=== PATIENT | male | born 1975 | race Caucasian/White ===

== ENCOUNTER 2023-12-06 15:24 | Emergency (ER) | payer OTHER, SELFPAY ==
[2023-12-06 15:28] VITALS: BP 174/89; PULSE 98; RESP 20; TEMP 39.2; O2SAT 94; BMI 37.5
--- NOTE | 2023-12-06 15:36 | XR_ITS ---
The [address] [address] Patient Name: CHIDI YU MRN: [id number] date: 1975 Sex: M Assigned Patient Location: ER Current Patient Location: ER Accession/Order Number: [id number] Exam Date: 12/06/2023 15:45 Report Date: 12/06/2023 16:13 At the request of: CIRILO DENT Procedure: XR chest 2V EXAM: CHEST 2 VIEWS HISTORY: cough TECHNIQUE: PA and lateral views chest. COMPARISON: None. FINDINGS: The lungs are clear. There is no focal lung consolidation, pleural effusion or pneumothorax. Pulmonary vasculature is within normal limits. The cardiomediastinal silhouette is normal. There are small degenerative spurs of the thoracic spine. XR/XR chest 2V IMPRESSION: 1. No acute cardiopulmonary disease. Electronically authenticated by: CHRISTIANNE CALDWELL Date: 12/06/2023 16:13
[2023-12-06] MEDS: IPRATROPIUM/ALBUTEROL SULFATE 3 ML AMPUL.NEB IH (15:56)
[2023-12-06 15:57] VITALS: PULSE 100; O2SAT 91
[2023-12-06 16:06] LABS: Influenza Virus A Antigen Negative; Influenza Virus B Antigen Negative; Internal Control Within Normal Limits; SARS-CoV-2 Ag NEGATIVE (NEGATIVE)
[2023-12-06] MEDS: IBUPROFEN 400 MG TABLET 800 MG PO (16:10)
[2023-12-06 16:42] VITALS: PULSE 93; TEMP 37; O2SAT 92
[2023-12-06 16:46] VITALS: BP 135/87
[2023-12-06] MEDS: PREDNISONE 20 MG TABLET 60 MG PO (17:02)
--- NOTE | 2023-12-06 17:16 | ED_ITS ---
HPI - General Adult General Chief complaint: Upper Respiratory Infection Stated complaint: low oxygen levels Time Seen by Provider: 12/06/23 15:32 Source: patient Mode of arrival: walk-in Limitations: no limitations History of Present Illness HPI narrative: 48-year-old male to the emergency department with chief complaint of cough, fever, chills, shortness of breath. Patient reports sudden onset of symptoms last evening. Has been taking Tylenol and ibuprofen at home with relief of some of the symptoms. He reports cough and shortness of breath continued today. He went to urgent care where he was told his pulse ox was low and he needed evaluation in the emergency department. Patient smokes half pack per day. No history of chronic obstructive pulmonary disease or asthma. He reports that he gets bronchitis yearly. He denies any chest pain. He denies any leg swelling. No history of deep vein thrombosis or PE. Related Data Previous Rx's Medication Instructions Recorded albuterol sulfate 90 mcg/actuation 2 inh inhalation Q4H PRN shortness 12/06/23 aerosol inhaler of breath or wheezing #8.5 grams dextromethorphan-guaifenesin ER 60 1 tab PO BID PRN cough #14 tabs 12/06/23 mg-1,200 mg tab,extend release,12hr (Mucinex DM) prednisone 20 mg tablet 60 mg (3 x 20 mg) PO DAILY 5 days 12/06/23 #15 tabs Allergies Allergy/AdvReac Type Severity Reaction Status Date / Time No Known Drug Allergies Allergy Verified 12/06/23 15:32 Review of Systems ROS Status of ROS 10 or more systems reviewed and unremark able except as noted in history and below Exam Narrative Exam Narrative: VITALS: I have reviewed the triage vital signs. GENERAL: Well developed, well appearing adult in no acute distress. NEURO: Alert and oriented. Moves all extremities. Face is symmetric and expressive. EYES: PERRL. No scleral icterus or conjunctival injection. No discharge. HENT: Normocephalic, atraumatic. Hearing is grossly intact. Bilateral nasal congestion. Mucous membranes moist. NECK: No JVD. Patient moves neck without restriction. CARDIO: Rhythm regular. Normal rate. No murmur, rub, or gallop. Pulses equal bilaterally in the upper and lower extremity. No lower extremity edema. PULM: Cough. Trace wheezes. No conversational dyspnea. No increased work of breathing. GI/: Abdomen is soft and non-tender. Normoactive bowel sounds. EXTREMITIES: Symmetric muscle bulk. No joint swelling. No clubbing, cyanosis, or deformity. SKIN: Warm and dry. Normal turgor. No rash or lesions appreciated. PSYCH: Mood, affect, and interaction is appropriate to the setting. Constitutional Vital Signs, click to edit/add: Last Vital Signs Temp 98.6 F 12/06/23 16:42 Pulse 93 H 12/06/23 16:42 Resp 20 12/06/23 15:28 BP 135/87 12/06/23 16:46 Pulse Ox 92 L 12/06/23 16:42 O2 Del Method Room Air 12/06/23 15:28 Course Vital Signs Vital signs: Vital Signs Temperature 102.5 F H 12/06/23 15:28 Pulse Rate 98 H 12/06/23 15:28 Respiratory Rate 20 12/06/23 15:28 Blood Pressure 174/89 H 12/06/23 15:28 Pulse Oximetry 94 L 12/06/23 15:28 Oxygen Delivery Method Room Air 12/06/23 15:28 Temperature 98.6 F 12/06/23 16:42 Pulse Rate 93 H 12/06/23 16:42 Respiratory Rate 20 12/06/23 15:28 Blood Pressure 135/87 12/06/23 16:46 Pulse Oximetry 92 L 12/06/23 16:42 Oxygen Delivery Method Room Air 12/06/23 15:28 Medical Decision Making MDM Narrative Medical decision making narrative: 48-year-old male to the emergency department she had flulike symptoms. Febrile, otherwise stable vitals. Does have some trace wheezing and a history of tobacco abuse. Viral swabs are ordered. Chest x-rays were ordered. A DuoNeb treatment is ordered. Patient agrees with this plan. Chest x-ray was without acute findings. COVID and Flu swabs are negative. Angled toward pulse ox was performed. Patient had no desaturation. He feels much improved with the ibuprofen and the DuoNeb treatment. I discussed tobacco cessation with the patient. Prednisone was given. A course of prednisone, albuterol treatments and Mucinex are prescribed as an outpatient. Return precautions were discussed. All questions were answered. Patient was discharged home. Medical Records Medical records reviewed: Yes I reviewed the patient's medical records Lab Data Lab results reviewed: Yes I reviewed the patient's lab results Labs: Lab Results 12/06/23 Range/Units 15:30 Influenza Type A Ag Negative Influenza Type B Ag Negative SARS-CoV-2 Ag (CV2AG) Negative (NEGATIVE) Imaging Data Chest x-ray: Attestation: I have reviewed the pertinent imaging results. Radiologist's impression: ITS Impressions Chest X-Ray 12/06/23 15:36 IMPRESSION: 1. No acute cardiopulmonary disease. Electronically authenticated by: CHRISTIANNE CALDWELL Date: 12/06/2023 16:13 Discharge Plan Discharge Stand Alone Forms: Portal Instructions Chief Complaint: Upper Respiratory Infection Clinical Impression: Upper respiratory infection, Tobacco use disorder, Bronchitis Patient Disposition: Home, Self-Care Time of Disposition Decision: 16:54 Condition: Good Mode of Transportation: Private Vehicle Prescriptions / Home Meds: New albuterol sulfate 90 mcg/actuation HFA aerosol inhaler 2 inh inhalation Q4H PRN (Reason: shortness of breath or wheezing) Qty: 8.5 0RF dextromethorphan-guaifenesin [Mucinex DM] 60-1,200 mg tablet extended release 12 hr 1 tab PO BID PRN (Reason: cough) Qty: 14 0RF prednisone 20 mg tablet 60 mg PO DAILY 5 Days Qty: 15 0RF Print Language: Gabonese Instructions: How to Stop Smoking (ED), How to Use a Metered-Dose Inhaler (ED), Acute Bronchitis (ED) Additional Instructions: You should only feel better on the medications. Return if your condition is worsening. Referrals: Bridget CASTRO [Primary Care Provider] - As soon as possible Discharge Date/Time: 12/06/23 17:05
== END 2023-12-06 17:05 | disposition home or self-care (01) ==
PROVIDERS: Emergency Provider Student in an Organized Health Care Education/Training Program; PCP Family Medicine
DX: J40 Bronchitis, not specified as acute or chronic (principal); J06.9 Acute upper respiratory infection, unspecified; F17.210 Nicotine dependence, cigarettes, uncomplicated; R50.9 Fever, unspecified; Z20.822 Contact with and (suspected) exposure to COVID-19
CPT/HCPCS: 71046; 87804; 87811; 94640; 99284; 99406

== ENCOUNTER 2024-01-21 08:52 | Emergency (ER) | payer OTHER, SELFPAY ==
[2024-01-21 08:59] VITALS: BP 138/90; PULSE 86; TEMP 37.1; O2SAT 97; BMI 36.2
--- NOTE | 2024-01-21 09:16 | XR_ITS ---
The [address] [address] Patient Name: CHIDI YU MRN: [id number] date: 1975 Sex: M Assigned Patient Location: ER Current Patient Location: ER Accession/Order Number: [id number] Exam Date: 01/21/2024 09:45 Report Date: 01/21/2024 10:15 At the request of: CITLALLI SAMAYOA Procedure: XR foot LT min 3V PROCEDURE: XR foot LT min 3V HISTORY: pain ; left foot heel and arch pain since injury a few days ago COMPARISON: None. FINDINGS: BONES:No fracture, acute abnormality, or significant arthropathy. SOFT TISSUES:No visible soft tissue swelling. EFFUSION:None visible. OTHER: Negative. XR/XR foot LT min 3V IMPRESSION: 1. No acute abnormality or significant degenerative changes. Electronically authenticated by: LIZETT BUSTOS Date: 01/21/2024 10:15
--- NOTE | 2024-01-21 12:23 | ED_ITS ---
HPI HPI - General Adult General Chief complaint: Extremity Injury, Lower Stated complaint: LEFT FOOT PAIN Time Seen by Provider: 01/21/24 09:15 Source: patient Mode of arrival: Wheelchair Limitations: no limitations History of Present Illness HPI narrative: Patient is a 48-year-old male who is presenting to the ER today with chief complaint of a injury that happened on Tuesday. Patient was getting off scaffolding, only stepped down approximately 2 feet. Patient felt a popping sensation to his left heel, left Achilles. 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 There is a morning patient had a hard time putting weight on his left foot and heel. Patient has been using ice and anti-inflammatories. Patient came in this morning because he still cannot ambulate or put weight on his left heel. Patient is having pain in his left heel and left Achilles. No other acute injury. Patient not following, not hit his head. Patient is initially stating more pain to his left heel than left Achilles. No ankle pain. Patient states it was no more than 2 feet when he stepped off the scaffolding onto the hard surface. Impacted mechanism of injury is low for left calcaneus fracture. Patient's also having mild left calf pain as well since Tuesday. All systems are negative except as noted/marked. All systems reviewed and otherwise negative. Nurses note and vital signs reviewed and patient is not hypoxic. General: The patient appears well and in no apparent distress. Patient is resting comfortably on cart. Patient is not toxic, lethargic, or listless Skin: Warm, dry, no pallor noted. There is no rash noted. No petechiae, purpura. Head: Normocephalic, atraumatic Eye: Normal conjunctiva, no drainage, EOMI. PERRL Ears, Nose, Mouth, and Throat: oral mucosa is moist. Nares patent. Mouth without vesicles. Cardiovascular: Regular Rate and Rhythm, no murmur, gallop, rub Respiratory: Patient is in no distress, no accessory muscle use, lungs are clear to auscultation, no wheezing, rales or rhonchi Musculoskeletal: Patient has full range of motion of all of the extremities, no motor, sensory, or focal neurological deficits. Negative [place] test, patient appears to have intact left Achilles tendon, is not completely soft, there is some ropiness, patient may have partial left Achilles tear. Patient does have moderate tenderness to palpation to left calcaneus, no swelling, ecchymosis. No pain to medial or lateral malleolus.No significant swelling to left foot. No other acute complaints. Neurological: A&O x4, normal speech Psychiatric: Cooperative Related Data Previous Rx's ?Medication ?Instructions ?Recorded albuterol sulfate 90 mcg/actuation 2 inh inhalation Q4H PRN shortness 12/06/23 aerosol inhaler of breath or wheezing #8.5 grams hydrocodone 5 mg-acetaminophen 325 1 tab PO Q4H PRN pain #10 tabs 01/21/24 mg tablet ibuprofen 800 mg tablet 800 mg PO Q8H PRN pain #30 tabs 01/21/24 Allergies Allergy/AdvReac Type Severity Reaction Status Date / Time No Known Drug Allergies Allergy Verified 12/06/23 15:32 Opioid HPI Opioid Management Most Recent Opioid Data: No Data to Display Exam Constitutional Vital Signs, click to edit/add: Last Vital Signs Temp 98.8 F 01/21/24 08:59 Pulse 86 01/21/24 08:59 Resp 18 01/21/24 08:59 BP 138/90 01/21/24 08:59 Pulse Ox 97 01/21/24 08:59 O2 Del Method Room Air 01/21/24 08:59 Course Vital Signs Vital signs: Vital Signs Temperature 98.8 F 01/21/24 08:59 Pulse Rate 86 01/21/24 08:59 Respiratory Rate 18 01/21/24 08:59 Blood Pressure 138/90 01/21/24 08:59 Pulse Oximetry 97 01/21/24 08:59 Oxygen Delivery Method Room Air 01/21/24 08:59 Temperature 98.8 F 01/21/24 08:59 Pulse Rate 86 01/21/24 08:59 Respiratory Rate 18 01/21/24 08:59 Blood Pressure 138/90 01/21/24 08:59 Pulse Oximetry 97 01/21/24 08:59 Oxygen Delivery Method Room Air 01/21/24 08:59 Medical Decision Making MDM Narrative Medical decision making narrative: I spoke to Dr. Zuluaga, he recommended putting patient in a short posterior splint in slight plantarflexion. Crutches, nonweightbearing, and they can see patient in the office on Tuesday or Tuesday. Procedure note: patient was placed in a short posterior splint and crutchEs To the left foot/ankle/lower extremities. Splint was assisted with . the patient was neurovascularly intact before and after the splint was placed. the affected bones/injured area had proper alignment in a splint. Education on splint care at home was given at bedside. Patient and family have no questions at discharge. Discharge Plan Discharge Stand Alone Forms: Portal Instructions Chief Complaint: Extremity Injury, Lower Clinical Impression: Injury of left Achilles tendon, Contusion of left heel Patient Disposition: Home, Self-Care Time of Disposition Decision: 10:34 Condition: Fair Prescriptions / Home Meds: New hydrocodone-acetaminophen 5-325 mg tablet 1 tab PO Q4H PRN (Reason: pain) Qty: 10 0RF ibuprofen 800 mg tablet 800 mg PO Q8H PRN (Reason: pain) Qty: 30 0RF Rx Instructions: with food and drink No Action albuterol sulfate 90 mcg/actuation HFA aerosol inhaler 2 inh inhalation Q4H PRN (Reason: shortness of breath or wheezing) Qty: 8.5 0RF Print Language: Turkish Instructions: Achilles Tendon Rupture (ED), Foot Contusion (ED) Additional Instructions: Ice 20 minutes on, 20 minutes off. Do not bear weight. Wear splint at all times. [facility] will see you on Tuesday or Tuesday, call Tuesday morning to make an appointment. I have spoken to Dr. Zuluaga about you today. Use crutches, do not bear weight. Referrals: Bridget CASTRO [Primary Care Provider] - 1 week Antwan Zuluaga DPM [Physician] - 1 week Discharge Date/Time: 01/21/24 11:24
== END 2024-01-21 11:24 | disposition home or self-care (01) ==
PROVIDERS: Emergency Provider Emergency Medicine; PCP Family Medicine
DX: S86.002A Unspecified injury of left Achilles tendon, initial encounter (principal); S90.32XA Contusion of left foot, initial encounter; X50.9XXA Other and unspecified overexertion or strenuous movements or postures, initial encounter
CPT/HCPCS: 29515; 73630; 99283

== ENCOUNTER 2024-02-03 06:47 | Outpatient (OUT) | payer OTHER, SELFPAY ==
--- NOTE | 2024-02-03 06:50 | MR_ITS ---
The [address] [address] Patient Name: CHIDI YU MRN: [facility]:[id number] date: 1975 Sex: M Assigned Patient Location: MRI Current Patient Location: Accession/Order Number: [id number] Exam Date: 02/03/2024 06:57 Report Date: 02/04/2024 10:12 At the request of: STEFANO BAUTISTA Procedure: MR ankle LT wo con EXAM: MR ankle LT wo con HISTORY: Left Achilles Rupture COMPARISON: 01/21/2024 radiograph TECHNIQUE: MRI images obtained with multiple sequences. MRI of the left ankle without contrast. Sequences obtained by standard department protocol. FINDINGS: Achilles tendon is intact. Susceptibility artifact adjacent to the Achilles tendon No ankle joint effusion. Plantar fascia is intact. Borderline thickening of the central plantar fascial fibers, suggesting potential chronic plantar fasciitis. Extensor and flexor tendons are intact. Partial-thickness tearing/tendinosis of the peroneus brevis Peroneus longus is intact. Anterior and posterior syndesmotic ligaments are intact. Anterior talofibular, posterior talofibular and calcaneofibular ligaments are intact. No significant degeneration of the hindfoot or midfoot. MR/MR ankle LT wo con IMPRESSION: 1. Achilles tendon is intact. No Achilles tendon tear. 2. There is a focus of susceptibility artifact adjacent to the Achilles tendon fibers, may represent a metallic focus. 3. No acute ligamentous abnormality. 4. Partial-thickness tearing/tendinosis of the peroneus brevis 5. No significant joint degeneration. Electronically authenticated by: CASSIUS SALGADO Date: 02/04/2024 10:12
== END 2024-02-03 06:48 | disposition home or self-care (01) ==
LOC: MRI 06:47
PROVIDERS: PCP Family Medicine; Visit Provider Physician Assistant
DX: S83.012A Lateral subluxation of left patella, initial encounter (principal)
CPT/HCPCS: 73721

== ENCOUNTER 2024-02-10 06:50 | Outpatient (RCR) | payer OTHER, SELFPAY | END 2024-04-11 15:24 | disposition home or self-care (01) | LOC: PT 06:50 | PROVIDERS: PCP Family Medicine; Visit Provider Podiatrist Foot & Ankle Surgery | DX: S86.012D Strain of left Achilles tendon, subsequent encounter (principal); R26.2 Difficulty in walking, not elsewhere classified | CPT/HCPCS: 20561; 97110; 97112; 97116; 97140; 97162 ==

== ENCOUNTER 2024-05-21 07:59 | Outpatient (OUT) | payer OTHER, SELFPAY ==
--- NOTE | 2024-05-21 08:50 | PM.PRESUREVA ---
History of Present Illness History of Present Illness Chief complaint: left calc spur Narrative: Patient presents for preadmission testing. The patient states he had an ankle injury earlier this year, and continues to have ankle pain and instability and despite physical therapy, NSAIDs, and alternative footwear. He states he is not currently using any assistive devices or taking any medications to help with his discomfort. He denies numbness, tingling, weakness, or any other complaints. He states his left ankle and foot pain is worse after climbing ladders or walking for long periods of time. Review of Systems ROS Narrative REVIEW OF SYSTEMS: Negative except as stated in HPI, ten or more systems reviewed. Constitutional: No fever, chills, weakness ENT: No sore throat or epistaxis Cardiovascular: No edema, chest pain, palpitations, or activity intolerance Respiratory: No shortness of breath, cough, or wheezing Gastrointestinal: No abdominal pain, constipation, diarrhea, or vomiting Genitourinary: No dysuria or hematuria Neurological: No numbness, tingling, weakness, or headache Psychiatric: No mood changes PFSH PFS Medical History (Updated 05/21/24 @ 08:53 by Nicol Bhat NP) Biceps tendon tear ?S46.219A - Strain of muscle, fascia and tendon of other parts of biceps, unspecified arm, initial encounter (ICD-10) Ankle pain ?M25.579 - Pain in unspecified ankle and joints of unspecified foot (ICD-10) Prediabetes ?R73.03 - Prediabetes (ICD-10) Ankle instability ?M25.373 - Other instability, unspecified ankle (ICD-10) Calcaneal spur ?M77.30 - Calcaneal spur, unspecified foot (ICD-10) Plantar fascial fibromatosis ?M72.2 - Plantar fascial fibromatosis (ICD-10) Peroneal tendinitis ?M76.70 - Peroneal tendinitis, unspecified leg (ICD-10) Strain of Achilles tendon ?S86.019A - Strain of unspecified Achilles tendon, initial encounter (ICD-10) Surgical History (Updated 05/21/24 @ 08:26 by Nicol Bhat NP) History of total hip arthroplasty ?Z96.649 - Presence of unspecified artificial hip joint (ICD-10) History of surgery on arm ?Z98.890 - Other specified postprocedural states (ICD-10) Family History (Updated 05/21/24 @ 08:26 by Nicol hBat NP) Other Family history of diabetes mellitus Family history of heart disease Social History (Updated 05/21/24 @ 08:22 by Nicol Bhat NP) Within the past year, how often did you have a drink containing alcohol: never Score interpretation: A score less than 4 is consistent with normal alcohol consumption. Smoking status: Current some day smoker What tobacco products do you use: cigarettes Cigarettes per day: 10 Years smoked: 24 Smoking pack-years: 12.00 Non-prescribed substance use: denies use Previous occupational history: [employer] Highest level of school completed/degree received: high school graduate Meds Home Medications and Allergies Allergies Allergy/AdvReac Type Severity Reaction Status Date / Time No Known Drug Allergies Allergy Verified 05/21/24 08:20 Exam Narrative Exam Narrative: Constitutional: Awake, alert, comfortable, well-appearing, nontoxic, interactive, vital signs as charted Head: Normocephalic, atraumatic Neck: Supple, normal appearance, normal range of motion, no meningeal signs, no lymphadenopathy Respiratory: No respiratory distress, breath sounds clear Cardiovascular: Regular rate and rhythm, strong and regular heart tones Musculoskeletal: Left ankle tenderness with palpation over the lateral aspect, pain with palpation on the plantar aspect of the medial arch, range of motion of the ankle limited due to pain, good capillary refill, sensation intact Skin: No rashes or induration, no lesions, only visible skin inspected Neuro: No neurological deficits, normal sensation Psychiatric: Oriented ?3, normal affect Assessment and Plan Assessment and Plan (1) Strain of Achilles tendon: (2) Peroneal tendinitis: (3) Plantar fascial fibromatosis: (4) Calcaneal spur: (5) Ankle instability: (6) Ankle pain: Plan Left Achilles tendon repair, excision of calcaneal spur, endoscopic plantar fasciotomy, peroneal tendon repair, stress exam of ankle with possible lateral ankle stabilization scheduled with Dr. Zuluaga May 31, 2024.
== END 2024-05-21 08:00 | disposition home or self-care (01) ==
LOC: PST 07:59
PROVIDERS: PCP Family Medicine; Visit Provider Podiatrist Foot & Ankle Surgery
DX: Z01.818 Encounter for other preprocedural examination (principal); S86.012A Strain of left Achilles tendon, initial encounter; M77.32 Calcaneal spur, left foot
CPT/HCPCS: G0463

== ENCOUNTER 2024-06-07 09:00 | Day surgery (SDC) | payer OTHER, SELFPAY ==
[2024-05-21 08:47] VITALS: BP 127/85; PULSE 70; TEMP 36.4; O2SAT 96; BMI 38.2
== END 2024-06-07 12:50 | disposition home or self-care (01) ==
LOC: LAB 06-15 13:27
PROVIDERS: PCP Family Medicine; Visit Provider Podiatrist Foot & Ankle Surgery
DX: S86.012A Strain of left Achilles tendon, initial encounter (principal); Z53.8 Procedure and treatment not carried out for other reasons; M77.32 Calcaneal spur, left foot
CPT/HCPCS: 36415; 85025

== ENCOUNTER 2024-06-18 06:28 | Day surgery (SDC) | payer OTHER, SELFPAY ==
[2024-06-18] VITALS (12 sets, daily range): BP systolic 125–156; BP diastolic 62–124; PULSE 66–87; TEMP 36.2–36.4; O2SAT 92–98; BMI 38.4
[2024-06-18 06:42] LABS: Basophils Absolute Auto 0.1 10^3/uL (0.0-0.1); Basophils Percent Auto 0.6 % (0.2-2.0); Eosinophils Absolute Auto 0.2 10^3/uL (0.0-0.7); Eosinophils Percent Auto 2.8 % (0.9-7.0); Hematocrit 47.2 % (42.0-54.0); Hemoglobin 15.9 g/dL (14.0-18.0); Immature Granulocytes Abs Auto 0.02 10^3/uL (0.00-0.03); Immature Granulocytes Pct Auto 0.2 % (0.0-0.5); Lymphocytes Absolute Auto 3.3 10^3/uL (1.2-3.8); Lymphocytes Percent Auto 37.8 % (20.5-60.0); Mean Corpuscular HGB Conc 33.7 g/dL (29.9-35.2); Mean Corpuscular Hemoglobin 29.3 pg (25.9-34.0); Mean Corpuscular Volume 86.9 fL (80.0-94.0); Mean Platelet Volume 9.5 fL (9.5-13.5); Monocytes Absolute Auto 0.4 10^3/uL (0.3-0.8); Monocytes Percent Auto 4.6 % (1.7-12.0); Neutrophils Absolute Auto 4.7 10^3/uL (1.4-6.5); Platelet Count 204 10^3/uL (150-450); Red Blood Count 5.43 10^6/uL (4.70-6.10); White Blood Count 8.7 10^3/uL (4.0-11.0)
[2024-06-18] MEDS: LACTATED RINGER'S SOLUTION 1,000 ML 50 ML IV ×2 (07:11→08:41)
[2024-06-18 07:36] LABS: Glucometer 123 mg/dL (74-106)
[2024-06-18] MEDS: CEFAZOLIN SODIUM 3,000 MG in 0.9 % SODIUM CHLORIDE 100 ML 200 MG IV (07:38)
--- NOTE | 2024-06-18 08:07 | PC.NURSE ---
0718 time out performed 07 2 mg versed injected in patient's IV 07 patient positioned area scrubbed to perform adductor canal block, injection of block medication began and was completed at 07 07 repositioned patient on right side 07 washed area behind knee to perform popliteal block looking with ultra sound for injection sight 07 began injection for popliteal block 07 picture obtained and block was completed at this time
--- NOTE | 2024-06-18 09:39 | XR_ITS ---
The [address] [address] Patient Name: CHIDI YU MRN: [id number] date: 1975 Sex: M Assigned Patient Location: [facility] Current Patient Location: Accession/Order Number: [id number] Exam Date: 06/18/2024 10:50 Report Date: 06/20/2024 08:20 At the request of: JUS SALAZAR Procedure: XR foot LT min 3V PROCEDURE: XR foot LT min 3V HISTORY: calcaneal spur ; left Achilles repair COMPARISON: XR foot left 01/21/2024 FINDINGS: BONES:Resection of a portion of the posterior superior aspect of the calcaneus. SOFT TISSUES:Trace amount of subcutaneous air posterior superior to the calcaneus consistent with recent surgery. EFFUSION:None visible. OTHER: Negative. XR/XR foot LT min 3V IMPRESSION: 1. Evaluation is slightly limited by overlying cast material. 2. Postsurgical changes from Achilles tendon repair/attachment. Electronically authenticated by: LIZETT BUSTOS Date: 06/20/2024 08:20
--- NOTE | 2024-06-18 09:41 | P.ORON_ITS ---
Brief Operative Note Date of procedure: 06/18/24 Pre-op diagnosis general: Left Achilles tendinopathy with partial tear, calcan eal spur, plantar fasciitis, peroneal tendon tear and possible ankle instability Post-op diagnosis: other (Left Achilles tendinopathy with partial tear, calcaneal spur, plantar fasciitis and peroneal tendon tear) Procedure: Procedure performed: Left Achilles tendon repair with excision of calcaneal spur, peroneal tendon repair, endoscopic plantar fasciotomy, application of short leg splint and stress examination under fluoroscopy Indications for procedure: Patient is a 48-year-old male who sustained left Achilles injury on 01/11/2024 when he stepped on a scaffold and felt a pop. He had had ongoing pain over the Achilles, posterior and plantar heel he related to unstable ankle especially with uneven surfaces and indicated pain over the peroneal tendons as an area of significant pain in addition to the previously noted issues. He was initially treated with nonoperative treatments which included physical therapy for 6 weeks, NSAIDs, shoe and activity modification and unfortunately he did not see any relief. An MRI was obtained in January which did show intratendinous degeneration of the Achilles with a peroneus brevis tear as well as calcaneal spur and thickening of the plantar fascia. Due to his failure to respond to nonsurgical treatment he wished to undergo surgical intervention and I discussed potential risks and benefits of the procedure which include but not limited to wound/dehiscence, infection, rerupture, weakness, persistent pain, numbness and tingling and need for additional surgery. I related that his use of tobacco does place him at higher risk particularly for wound, dehiscence and infection. Intraoperative findings: Stress examination revealed stability of the lateral ankle ligaments and negative anterior drawer. Plantar fascia was thickened and scar consistent with chronic plantar fasciitis Achilles tendon was thickened and consistent with chronic tendinosis and scar from partial tear. Retrocalcaneal bursitis and inflamed tissue noted at the insertion of the Achilles tendon with calcaneal spur. Split tear and flattening of the peroneus brevis as well as low-lying brevis muscle belly. Procedure in detail: Patient was identified preoperative holding by myself which time correct side and site were marked and consent was obtained. Regional anesthesia was provided by the anesthesia team. Preoperative antibiotics were started and patient is brought back to the operating theater and was intubated. The left ankle was stressed and had a notably stable anterior drawer and varus/valgus tilt. The patient was then flipped onto the table in a well-padded prone position with a thigh tourniquet. The left lower extremity was prepped and draped in usual sterile fashion and formal timeout was performed. The left lower extremity was exsanguinated and the tourniquet was inflated. Stab incision over the medial aspect of the left in-step at the glabrous skin junction was used followed by blunt dissection and the medial band of the plantar fascia was identified. Trochar and cannula were then placed medial to lateral. A lateral stab incision was made to allow passage of the trochar and cannula. Camera was inserted into the lateral portal and a hook blade was placed into the medial portal. 50% of the plantar fascia was released and healthy muscle was noted. The site was flushed with saline and instrumentation was removed. Closure with nylon suture was then undertaken. A midline longitudinal incision over the Achilles tendon was performed and a combination of sharp and blunt dissection with all bleeders being coagulated allowed access to the Achilles tendon. The non-insertional and insertional areas of the Achilles tendon were completely exposed. There was significant thickening and nonviable tissue noted in Achilles tendon. Retrocalcaneal spur was noted and upon incision of the Achilles tendon retrocalcaneal bursitis with surrounding inflammatory tissue was noted and excised. The Achilles tendon was detached from its insertion and inspected closely. Nonviable tendon was excised then all chronic tears and scar tissue removed the tendon was repaired with absorbable suture. Attention was then drawn to the retrocalcaneal spur and an osteotome was used to remove all excess bone and inflammatory tissue. A rongeur and rasp were then used to contour the retrocalcaneal to an anatomic appearance. Outer cortical bone was invaded and healthy bleeding was noted which will allow good tendon to bone healing. The area was flushed with copious amounts of sterile saline and a wet lap was placed over the Achilles tendon. Four drill holes were placed into the posterior calcaneus from posterior to anterior and were placed approximately 2 cm apart in a square type fashion. Two 3.3 mm suture anchors (each with 4 sutures/needles) were placed into the proximal two holes on the posterior aspect of the calcaneus. The sutures were then passed through the distal aspect of the Achilles tendon. The needles were removed and 2 of the sutures from each anchor were placed through a 4.5 mm knotless anchor. The foot was held in plantarflexion and proper tension of the sutures was obtained and the anchor was secured to the calcaneus through the distal medial drill hole. Then the 4 remaining sutures, 2 from each anchor were placed into a second 4.5 mm knotless anchor which was secured to the calcaneus using the distal lateral drill hole. I tested the stability of all anchors which was adequate. The foot was in 15 degrees of equinus. The surgical site was flushed thoroughly and the incision was closed in layers. Then an incision was placed over the peroneal tendons from the distal fibula extending 2 cm past the lateral malleolus tip. A combination of sharp and blunt dissection with all bleeders being coagulated gained access to the tendon sheath which was carefully reflected exposing the peroneus longus which was intact and of normal size. The longus was retracted out of the way to the half for inspection of the brevis which had a longitudinal split tear and flattening which extended the course of the fibular groove. Low-lying muscle belly was also significant and was excised. The tear of the brevis was excised and the tendon was debrided. The tendon was then repaired and retubularized using absorbable suture. The peroneal groove was of adequate depth and the tendons were relocated into the groove and the ankle was placed to range of motion noted smooth gliding of both the tendons. The surgical site was irrigated with copious saline the retinaculum and tendon sheath was then repaired using a pants over vest suture technique with observable suture. The incision was then closed in layers and the tourniquet was deflated with a prompt hyperemic response. Xeroform, 4 x 4's and Curlex were placed over the incisions followed by multiple layers of cast padding applied from the ball of the foot to the popliteal fossa. Next a layer of Brain wrap's were then applied from the forefoot to the popliteal fossa followed by additional layers of cast padding. A posterior plaster splint was then applied with the ankle in 15 degrees of plantarflexion which was held in place by additional layer of Brain wrap's. Patient was then transferred to the [facility] and extubated. Capillary refill to the left toes was brisk. Patient was then transferred to the recovery room with vital signs stable. Postoperative plan: Discharge home under 's care Strict nonweightbearing on the left lower extremity for approximately 3 weeks or until the incisions have healed. Written prescription for Percocet 5/325 #42 1 by mouth every 4 hours as needed for pain, additional prescriptions were sent directly to the pharmacy from my office. Ice and elevation Patient will follow-up in 1 week for cast application Implants: Medline 3.3 mm suture anchors (x2) & 4.5 mm knotless anchors (x2) Anesthesia: regional and General-ET Surgeon: Antwan Zuluaga Estimated blood loss (mL): 10 Tourniquet time (min): 82 Pathology: other (peroneal tendon) Condition: stable Disposition: PACU
[2024-06-18 10:47] LABS: Glucometer 156 mg/dL (74-106)
--- NOTE | 2024-06-18 11:27 | PC.NURSE ---
patient is emotional and very sleep denies any pain.
--- NOTE | 2024-06-18 12:07 | PC.NURSE ---
Patient denies pain at discharge but still emotional with tears. Patient was ready to go om
== END 2024-06-18 12:00 | disposition home or self-care (01) ==
PROVIDERS: Anesthesiology; PCP Family Medicine; Visit Provider Podiatrist Foot & Ankle Surgery
PROC: (CPT 01464; principal; 2024-06-18 07:30)
DX: S86.012A Strain of left Achilles tendon, initial encounter (principal); M77.32 Calcaneal spur, left foot; M72.2 Plantar fascial fibromatosis; S86.312A Strain of muscle(s) and tendon(s) of peroneal muscle group at lower leg level, left leg, initial encounter; X50.1XXA Overexertion from prolonged static or awkward postures, initial encounter; F17.210 Nicotine dependence, cigarettes, uncomplicated; M25.372 Other instability, left ankle; M76.72 Peroneal tendinitis, left leg; R73.03 Prediabetes
CPT/HCPCS: 01464; 01472; 01480; 27650; 27675; 28118; 29893; 36415; 64445; 64447; 73630; 76000; 82948; 85025; C1713; J0131; J0690; J1100; J1170; J1885; J2250; J2405; J2704; J2795; J3010

== ENCOUNTER 2024-06-25 21:44 | Emergency (ER) | payer OTHER, SELFPAY ==
[2024-06-25 21:49] VITALS: BP 178/110; PULSE 87; TEMP 36.7; O2SAT 96; BMI 40.0
--- NOTE | 2024-06-25 22:47 | ED.EXTPRO1 ---
HPI - Extremity Problem General Chief complaint: Extremity Problem, Nontraumatic Stated complaint: Post Operative Time Seen by Provider: 06/25/24 22:15 Source: patient Mode of arrival: Wheelchair History of Present Illness HPI Narrative: surgery left Achilles one week ago. Claribel took a shower and got the splint wet. Here to have the splint replaced. Has followup with Podiatry tomorrow Related Data Allergies Allergy/AdvReac Type Severity Reaction Status Date / Time No Known Drug Allergies Allergy Verified 06/18/24 06:52 Review of Systems ROS Status of ROS 10 or more systems reviewed and unremarkable except as noted in history and below [facility] Medical History (Updated 06/25/24 @ 22:55 by Franklin Braga MD) Biceps tendon tear ?S46.219A - Strain of muscle, fascia and tendon of other parts of biceps, unspecified arm, initial encounter (ICD-10) Ankle pain ?M25.579 - Pain in unspecified ankle and joints of unspecified foot (ICD-10) Prediabetes ?R73.03 - Prediabetes (ICD-10) Ankle instability ?M25.373 - Other instability, unspecified ankle (ICD-10) Calcaneal spur ?M77.30 - Calcaneal spur, unspecified foot (ICD-10) Plantar fascial fibromatosis ?M72.2 - Plantar fascial fibromatosis (ICD-10) Peroneal tendinitis ?M76.70 - Peroneal tendinitis, unspecified leg (ICD-10) Strain of Achilles tendon ?S86.019A - Strain of unspecified Achilles tendon, initial encounter (ICD-10) Surgical History (Updated 05/21/24 @ 08:26 by Nicol Bhat NP) History of total hip arthroplasty ?Z96.649 - Presence of unspecified artificial hip joint (ICD-10) History of surgery on arm ?Z98.890 - Other specified postprocedural states (ICD-10) Family History (Updated 05/21/24 @ 08:26 by Nicol Bhat NP) Other Family history of diabetes mellitus Family history of heart disease Social History (Updated 05/21/24 @ 08:22 by Nicol Bhat NP) Within the past year, how often did you have a drink containing alcohol: never Score interpretation: A score less than 4 is consistent with normal alcohol consumption. Smoking status: Current some day smoker What tobacco products do you use: cigarettes Cigarettes per day: 10 Years smoked: 24 Smoking pack-years: 12.00 Non-prescribed substance use: denies use Previous occupational history: [employer] Highest level of school completed/degree received: high school graduate Little interest or pleasure in doing things: not at all Feeling down, depressed, or hopeless: not at all Exam Constitutional Vital Signs, click to edit/add: Last Vital Signs Temp 98.1 F 06/25/24 21:49 Pulse 87 06/25/24 21:49 Resp 18 06/25/24 21:49 BP 178/110 H 06/25/24 21:49 Pulse Ox 96 06/25/24 21:49 O2 Del Method Room Air 06/25/24 21:49 Common normals: no apparent distress, average body habitus, oriented x3 and no limitations HENMT Common normals: normocephalic and head/scalp atraumatic Eye Common normals: EOMs intact bilaterally Respiratory Common normals: normal respiratory effort, no retractions and no use of accessory muscles Extremity Other: wet splint and gauze removed from left leg. incision looks good. no erythema or swelling or drainage Neuro Common normals: oriented x3, CN's II-XII intact bilaterally, moves all extremities and no focal motor deficits Psych Appearance: grossly normal Course Vital Signs Vital signs: Vital Signs Temperature 98.1 F 06/25/24 21:49 Pulse Rate 87 06/25/24 21:49 Respiratory Rate 18 06/25/24 21:49 Blood Pressure 178/110 H 06/25/24 21:49 Pulse Oximetry 96 06/25/24 21:49 Oxygen Delivery Method Room Air 06/25/24 21:49 Temperature 98.1 F 06/25/24 21:49 Pulse Rate 87 06/25/24 21:49 Respiratory Rate 18 06/25/24 21:49 Blood Pressure 178/110 H 06/25/24 21:49 Pulse Oximetry 96 06/25/24 21:49 Oxygen Delivery Method Room Air 06/25/24 21:49 MDM - Extremity (Nontraumatic) MDM Narrative Medical decision making narrative: patient presents to have his splint replaced because he got it wet tonight taking a shower. No injury. wet splint removed and incisions inspected and are clean . New gauze and splint placed Discharge Plan Discharge Chief Complaint: Extremity Problem, Nontraumatic Clinical Impression: Post-operative complication Patient Disposition: Home, Self-Care Print Language: Liberian Instructions: Achilles Tendon Repair (DC) Additional Instructions: follow up with podiatry tomorrow as planned Referrals: Bridget CASTRO [Primary Care Provider] - 1 week Procedures ED Procedure Instructions Procedures Procedures: recent left achilles surgery. posterior ankle splint placed. fiber glass material use to fashion the splint. Held in place with alla bandage. N/V post procedure WNL
[2024-06-25 23:05] VITALS: BP 122/68; PULSE 83; O2SAT 96
== END 2024-06-25 23:08 | disposition home or self-care (01) ==
PROVIDERS: Emergency Provider Internal Medicine; PCP Family Medicine
DX: Z46.89 Encounter for fitting and adjustment of other specified devices (principal); F17.210 Nicotine dependence, cigarettes, uncomplicated
CPT/HCPCS: 29515; 99281

== ENCOUNTER 2024-11-14 06:50 | Outpatient (RCR) | payer OTHER, SELFPAY | END 2024-12-19 08:54 | disposition home or self-care (01) | LOC: PT 06:50 | PROVIDERS: PCP Family Medicine; Visit Provider Podiatrist Foot & Ankle Surgery | DX: S86.012D Strain of left Achilles tendon, subsequent encounter (principal); R26.2 Difficulty in walking, not elsewhere classified | CPT/HCPCS: 97110; 97112; 97140; 97162 ==

== ENCOUNTER 2025-06-20 10:07 | Emergency (ER) | payer OTHER, SELFPAY ==
--- OUTSIDE RECORDS SUMMARY | 2024-12-12 05:00 | XMS_ITS ---
Author Organization [facility] Address [address] [place] [address] Care Team Providers Care Ortho Nurse Name Role Phone Scar Lara DO Primary Care Provider Antwan Buckley Unavailable [phone] REASON FOR VISIT 8 week f/u Encounters Encounter Location Date Provider Diagnosis [facility] (PODIATRY) [address] [place] [address] [place] [address] 12/12/2024 Antwan Zuluaga Plan Of Treatment No Information Progress Notes * Gregory YUDOB: [birth year] (49 yo M)Acc No.[id number]:12/12/2024 UNLOCKED PROGRESS NOTE Follow Up Patient: Gregory PECK Provider: Olinda Zuluaga DPM MS :1975 A ge:49 Y S ex:Male Date:12/12/2024 Address:[address] [place] [address] [id number] Pcp:Scar Lara DO Subjective: * Chief Complaints: * 1 . 8 week f/u. * Medical History: Objective: * Vitals: Assessment: Plan: * Treatment: * * Electronic signature of Gary Zuluaga DPM on 06/20/2025 at 11:14 AM EDT Sign off status: Pending Visit Status: C ANC (Cancelled) * Provider: Olinda Zuluaga DPM, MS Date: 0 12/12/2024 Generated for Kushali ng/Fanormang/eTransmitting on: 0 06/20/2025 11:14 AM EDT
[2025-06-20 10:19] VITALS: BP 139/91; PULSE 60; TEMP 36.5; O2SAT 96; BMI 36.2
--- NOTE | 2025-06-20 10:47 | CT_ITS ---
[address] [address] Patient Name: CHIDI YU MRN: [id number] date: 1975 Sex: M Assigned Patient Location: ER Current Patient Location: .MAIN Accession/Order Number: [id number] Exam Date: 06/20/2025 11:40 Report Date: 06/20/2025 12:22 At the request of: EUNICE WHEELER MD Procedure: CT abdomen pelvis w con CT abdomen pelvis w con 06/20/2025 11:50 AM SIGNS AND SYMPTOMS: Right lower quadrant pain radiating to right groin and flank, nausea TECHNIQUE: Multidetector ct axial images of the abdomen and pelvis were obtained and IV contrast. Multiplanar reformats were performed and reviewed to further define anatomy and possible pathology. CT was performed with one or more of the following dose reduction techniques: Automated exposure control, adjustment of the mA and/or kV according to patient size, or use of iterative reconstruction technique. COMPARISON: None. FINDINGS: Lower Chest: Within normal limits. ABDOMEN: Liver: The liver is hypoattenuating suggesting hepatic steatosis. Bile Ducts: Normal caliber. Gallbladder: No calcified gallstones. Normal caliber wall. Pancreas: Within normal limits. Spleen: Within normal limits. Adrenals: Within normal limits. Kidneys: Within normal limits. Pelvis: Reproductive Organs: No pelvic masses. Ureters: Within normal limits. Bladder: Within normal limits. Bowel: Normal caliber. Uncomplicated colonic diverticula are noted. There is a normal appendix in the right lower quadrant. Mesenteric Lymph Nodes: No enlarged mesenteric lymph nodes. Peritoneum: No ascites or free air, no fluid collection. Vessels: within normal limits Retroperitoneum: Within normal limits. Abdominal Wall: Within normal limits. Bones: Degenerative changes are noted in the thoracolumbar spine. CT/CT abdomen pelvis w con IMPRESSION: No acute intra-abdominal pathology. Abdominal wall is intact without evidence of hernia. No bowel obstruction or obstructive uropathy. Degenerative changes are noted in the thoracolumbar spine. Uncomplicated colonic diverticula are noted. There is a normal appendix in the right lower quadrant. Impression dictated by: Travis Benson M.D. 06/20/2025 12:22 PM Dictation Location: RADIO-PC-24 Electronically authenticated by: [id number] Y Date: 06/20/2025 12:22
--- NOTE | 2025-06-20 10:51 | ED.GENADUL1 ---
HPI HPI - General Adult General Chief complaint: Abdominal Pain Stated complaint: abdominal pain Time Seen by Provider: 06/20/25 10:32 Source: patient Mode of arrival: walk-in History of Present Illness HPI narrative: 49-year-old male presenting to the emergency department for pain in his abdomen. It is in the right lower abdomen and it started 2 days ago. He states he lifted something heavy at work and it really did not hurt much then but then the pain got worse. It now radiates into his testicle on the right side only. There was no injury such as a fall or a blow to his abdomen. No constipation or diarrhea and the pain is continuous. Related Data Home Medications ?Medication ?Instructions ?Recorded ?Confirmed No Known Home Medications 06/20/25 06/20/25 Allergies Allergy/AdvReac Type Severity Reaction Status Date / Time No Known Drug Allergies Allergy Verified 06/20/25 10:19 Opioid HPI Opioid Management Most Recent Opioid Data: Last Pain Scale 7 Today, 12:26 Last MAR Pain Assessment Today, 12:26 Review of Systems ROS Narrative A ten point review of systems is negative except as noted above. PFSH PFSH Medical History (Updated 06/20/25 @ 13:11 by Saravanan Lepe MD) Biceps tendon tear ?S46.219A - Strain of muscle, fascia and tendon of other parts of biceps, unspecified arm, initial encounter (ICD-10) Ankle pain ?M25.579 - Pain in unspecified ankle and joints of unspecified foot (ICD-10) Prediabetes ?R73.03 - Prediabetes (ICD-10) Ankle instability ?M25.373 - Other instability, unspecified ankle (ICD-10) Calcaneal spur ?M77.30 - Calcaneal spur, unspecified foot (ICD-10) Plantar fascial fibromatosis ?M72.2 - Plantar fascial fibromatosis (ICD-10) Peroneal tendinitis ?M76.70 - Peroneal tendinitis, unspecified leg (ICD-10) Strain of Achilles tendon ?S86.019A - Strain of unspecified Achilles tendon, initial encounter (ICD-10) Surgical History (Updated 05/21/24 @ 08:26 by Nicol Bhat NP) History of total hip arthroplasty ?Z96.649 - Presence of unspecified artificial hip joint (ICD-10) History of surgery on arm ?Z98.890 - Other specified postprocedural states (ICD-10) Family History (Updated 05/21/24 @ 08:26 by Nicol Bhat NP) Other Family history of diabetes mellitus Family history of heart disease Social History (Updated 05/21/24 @ 08:22 by Nicol Bhat NP) Within the past year, how often did you have a drink containing alcohol: never Score interpretation: A score less than 4 is consistent with normal alcohol consumption. Smoking status: Current some day smoker What tobacco products do you use: cigarettes Cigarettes per day: 10 Years smoked: 24 Smoking pack-years: 12.00 Non-prescribed substance use: denies use Previous occupational history: [employer] Highest level of school completed/degree received: high school graduate Little interest or pleasure in doing things: not at all Feeling down, depressed, or hopeless: not at all Exam Narrative Exam Narrative: Nurses note and vital signs reviewed and patient is not hypoxic. General:The patient appears well and in no apparent distress.Patient is resting on cart. Skin:Warm, dry, no pallor noted.There is no rash noted. Head:Normocephalic, atraumatic Eye: Normal conjunctiva, no drainage Ears, Nose, Mouth, and Throat: oral mucosa is moist. Nares patent. Cardiovascular:Regular Rate and Rhythm Respiratory:Patient is in no distress, no accessory muscle use, lungs are clear to auscultation, no wheezing, rales or rhonchi GI: Soft and nondistended. No bruise rash or abrasion on his abdomen. He has tenderness in his right lower quadrant, none elsewhere. : No testicular swelling. No masses. Musculoskeletal: The patient has no evidence of calf tenderness, no pitting edema, symmetrical pulses noted bilaterally Neurological:A&O, normal speech Psychiatric:Cooperative Constitutional Vital Signs, click to edit/add: Last Vital Signs Temp 97.7 F 06/20/25 10:19 Pulse 60 06/20/25 10:19 Resp 16 06/20/25 10:19 BP 139/91 06/20/25 10:19 Pulse Ox 96 06/20/25 10:19 O2 Del Method Room Air 06/20/25 10:19 Course Vital Signs Vital signs: Vital Signs Temperature 97.7 F 06/20/25 10:19 Pulse Rate 60 06/20/25 10:19 Respiratory Rate 16 06/20/25 10:19 Blood Pressure 139/91 06/20/25 10:19 Pulse Oximetry 96 06/20/25 10:19 Oxygen Delivery Method Room Air 06/20/25 10:19 Temperature 97.7 F 06/20/25 10:19 Pulse Rate 60 06/20/25 10:19 Respiratory Rate 16 06/20/25 10:19 Blood Pressure 139/91 06/20/25 10:19 Pulse Oximetry 96 06/20/25 10:19 Oxygen Delivery Method Room Air 06/20/25 10:19 Medical Decision Making MDM Narrative Medical decision making narrative: His workup here is negative including WBC, urinalysis, CT of the abdomen, and scrotal ultrasound. My clinical impression at this point is that he has a muscle strain. Treatment diagnosis and follow-up were discussed with the patient and his . Differential Diagnosis Differential Diagnosis: Appendicitis, testicular torsion, muscle strain Lab Data Lab results reviewed: Yes I reviewed the patient's lab results Labs: Lab Results 06/20/25 Range/Units 10:50 WBC 6.7 (4.0-11.0) 10^3/uL RBC 4.92 (4.70-6.10) 10^6/uL Hgb 14.9 (14.0-18.0) g/dL Hct 42.6 (42.0-54.0) % MCV 86.6 (80.0-94.0) fL MCH 30.3 (25.9-34.0) pg MCHC 35.0 (29.9-35.2) g/dL RDW 11.9 (11.0-15.0) % Plt Count 195 (150-450) 10^3/uL MPV 9.9 (9.5-13.5) fL Neut % (Auto) 47.5 (43.0-75.0) % Lymph % (Auto) 44.5 (20.5-60.0) % [place] % (Auto) 4.5 (1.7-12.0) % Eos % (Auto) 2.7 (0.9-7.0) % Baso % (Auto) 0.6 (0.2-2.0) % Neut # (Auto) 3.2 (1.4-6.5) 10^3/uL Lymph # (Auto) 3.0 (1.2-3.8) 10^3/uL [place] # (Auto) 0.3 (0.3-0.8) 10^3/uL Eos # (Auto) 0.2 (0.0-0.7) 10^3/uL Baso # (Auto) 0.0 (0.0-0.1) 10^3/uL Abs Immat Gran (auto) 0.01 (0.00-0.03) 10^3/uL Imm/Tot Granulo (auto) 0.2 (0.0-0.5) % Sodium 140 (136-145) mmol/L Potassium 3.9 (3.5-5.1) mmol/L Chloride 108 H (98-107) mmol/L Carbon Dioxide 26.7 (21.0-32.0) mmol/L Anion Gap 9.2 BUN 22.0 H (7.0-18.0) mg/dL Creatinine 0.86 (0.70-1.30) mg/dL Est GFR ( Amer) >60 (>=60 mL/min/1.73m^2) Est GFR (Non-Af Amer) >60 (>=60 mL/min/1.73m^2) BUN/Creatinine Ratio 25.6 Glucose 101 (74-106) mg/dL Calcium 8.4 L (8.5-10.1) mg/dL Urine Color Lt. yellow (YELLOW) Urine Clarity Clear (CLEAR) Urine pH 7.5 (5.0-9.0) Ur Specific [place] 1.010 (1.005-1.025) Urine Protein Negative (NEG/TRACE) mg/dL Urine Glucose (UA) Negative (NEGATIVE) mg/dL Urine Ketones Negative (NEGATIVE) mg/dL Urine Occult Blood Negative (NEGATIVE) Urine Nitrite Negative (NEGATIVE) Urine Bilirubin Negative (NEGATIVE) Urine Urobilinogen 0.2 (0.2-1.0) EU/dL Ur Leukocyte Esterase Negative (NEGATIVE) Urine RBC None seen (0-2) #/HPF Urine WBC None seen (NONE SEEN) #/HPF Ur Squamous Epith Cells Rare (NONE/RARE) #/LPF Urine Crystals None seen (None Seen) #/HPF Urine Bacteria None seen (NONE SEEN) #/HPF Urine Casts None seen (NONE SEEN) #/LPF Urine Mucus None seen (NONE SEEN) Ur Culture Indicated? No Imaging Data CT scan - abdomen: Radiologist's impression: ITS Impressions Abdomen/Pelvis CT 06/20/25 10:47 IMPRESSION: No acute intra-abdominal pathology. Abdominal wall is intact without evidence of hernia. No bowel obstruction or obstructive uropathy. Degenerative changes are noted in the thoracolumbar spine. Uncomplicated colonic diverticula are noted. There is a normal appendix in the right lower quadrant. Impression dictated by: Travis Benson M.D. 06/20/2025 12:22 PM Dictation Location: [facility] Electronically authenticated by: [id number] Y Date: 06/20/2025 12:22 Scrotum Ultrasound 06/20/25 12:25 IMPRESSION: 1. The testicles are normal in size and echogenicity. No intratesticular lesions. 2. No sonographic evidence of testicular ischemia. Impression dictated by: Travis Benson M.D. 06/20/2025 1:06 PM Dictation Location: [facility] Electronically authenticated by: [id number] Y Date: 06/20/2025 13:06 Discharge Plan Discharge Chief Complaint: Abdominal Pain Clinical Impression: Abdominal pain Patient Disposition: Home, Self-Care Time of Disposition Decision: 13:11 Condition: Good Mode of Transportation: Private Vehicle Prescriptions / Home Meds: No Action No Known Home Medications Print Language: Prydeinig Instructions: Abdominal Pain (ED) Referrals: Bridget CASTRO [Physician, Family Practice] - 1 week
--- OUTSIDE RECORDS SUMMARY | 2025-06-20 11:13 | XMS_ITS | Encounter Summary ---
Author Organization [facility] Address [address] [facility] [place] [address] Care Team Providers Care Mask Designer Name Role Phone Tj Azul Unavailable Scar Lara DO Primary Care Provider [phone] Scar Lara DO Unavailable [phone] Encounter Details Date Type Department Care Team (Late st Contact Info) Description 06/20/2024 Clinisync Result Encounter [facility] External Department Unsolicited Provider, Generic External Data Social History Tobacco Use Types Packs/Day Years Used Date Smoking Tobacco: Every Day Cigarettes Smokeless Tobacco: Never Alcohol Use Standard Drinks/Week Comments Yes 0 (1 standard drink = 0.6 oz pur e alcohol) AUDIT-C Answer Date Recorded Q1: How often do you have a drink containing alc ohol? 2-4 times a month 05/05/2023 Q2: How many drinks containi ng alcohol do you have on a typical day when you are drinking? 1 or 2 05/05/2023 Q3: How often do you have si x or more drinks on one occasion? Never 05/05/2023 PHQ-2 Answer Date Recorded Patient Health Questionnaire-2 Score 0 05/09/2024 Sex and Gender Information Value Date Recorded Sex Assigned at Not on file Legal Sex Male 11:33 PM EDT Gender Identity Not on file Sexual Orientation Not on file documented as of this encounter Plan of Treatment Not on file documented as of this encounter Procedures Procedure Name Priority Date/Time Associated Diagnosis Comments XR FOOT LT MIN 3V 06/20/2024 8:2 0 AM EDT documented in this encounter Results * XR FOOT LT MIN 3V (06/20/2024 8:20 AM EDT) Anatomical Region Laterality Modality Other 06/20/2024 8:20 AM EDT Narrative 06/20/2024 8:23 AM EDT [address] [address] XRay Report Signed Patient: CHIDI YU MR#: [id number] : 1975 Acct:[id number] Age/Sex: 48 / M ADM Date: 06/18/24 Loc: SURGOUT Attending Dr: Jus Zuluaga D.P.M. Ordering Physician: Jus Zuluaga D.P.M. Date of Service: 06/18/24 Procedure(s): XR foot LT min 3V Accession Number(s): [id number] cc: Jus Zuluaga D.P.M.; Bridget LARA [place] [id number] Patient Name: CHIDI YU MRN: [id number] date: 1975 Sex: M Assigned Patient Location: [facility] Current Patient Location: Accession/Order Number: [id number] Exam Date: 06/18/2024 10:50 Report Date: 06/20/2024 08:20 At the request of: JUS ZULUAGA Procedure: XR foot LT min 3V PROCEDURE: XR foot LT min 3V HISTORY: calcaneal spur ; left Achilles repair COMPARISON: XR foot left 01/21/2024 FINDINGS: BONES:Resection of a portion of the posterior superior aspect of the calcaneus. SOFT TISSUES:Trace amount of subcutaneous air posterior superior to the calcaneus consistent with recent surgery. EFFUSION:None visible. OTHER: Negative. XR/XR foot LT min 3V IMPRESSION: 1. Evaluation is slightly limited by overlying cast material. 2. Postsurgical changes from Achilles tendon repair/attachment. Electronically authenticated by: LIZETT PAULINO Date: 06/20/2024 08:20 Dictated By: Lizett Paulino M.D. Signed By: 06/20/24822 DD/ 9 TD/TT: Switchboard Operator Supervisor: Procedure Note Radiology, Radiologist, - 06/20/2024 [place] [address] XRay Report Signed Patient: CHIDI YUMR#: [id number] : 1975Acct:[id number] Age/Sex: 48 / MADM Date: 06/18/24 Loc: SURGOUT Attending Dr: Jus Zuluaga D.P.M. Ordering Physician: Jus Zuluaga D.P.M. Date of Service: 06/18/24 Procedure(s): XR foot LT min 3V Accession Number(s): [id number] cc: Jus Zuluaga D.P.M.; Bridget LARA [place] [id number] Patient Name: CHIDI YU MRN: [id number] date: 1975 Sex: M Assigned Patient Location: [facility] Current Patient Location: Accession/Order Number: [id number] Exam Date: 06/18/2024 10:50 Report Date: 06/20/2024 08:20 At the request of: JUS ZULUAGA Procedure: XR foot LT min 3V PROCEDURE: XR foot LT min 3V HISTORY: calcaneal spur ; left Achilles repair COMPARISON: XR foot left 01/21/2024 FINDINGS: BONES:Resection of a portion of the posterior superior aspect of the calcaneus. SOFT TISSUES:Trace amount of subcutaneous air posterior superior to the calcaneus consistent with recent surgery. EFFUSION:None visible. OTHER: Negative. XR/XR foot LT min 3V IMPRESSION: 1. Evaluation is slightly limited by overlying cast material. 2. Postsurgical changes from Achilles tendon repair/attachment. Electronically authenticated by: LIZETT PAULINO Date: 06/20/2024 08:20 Dictated By: Lizett Paulino M.D. Signed By:06/20/24822 DD/ 9 TD/TT: Switchboard Operator Supervisor: Generic External Data Provider [facility] Final Result documented in this encounter Visit Diagnoses Not on filedocumented in this encounter Care Teams Mask Designer Relationship Specialty Start Date End Date Tj Azul PA [address] [place] [address] PCP - [facility] 12/25/22 Scar Lara DO [address] [facility] [address] [place] [address] PCP - General Family Medicine 02/01/23 Scar Lara DO [address] [facility] [address] [place] [address] PCP - [facility] 09/26/24 documented as of this encounter
--- OUTSIDE RECORDS SUMMARY | 2025-06-20 11:13 | XMS_ITS | Encounter Summary ---
Author Organization [facility] Address [address] [place] [address] Care Team Providers Care Data Examination Clerk Name Role Phone Tj Azul Unavailable Scar Lara DO Primary Care Provider [phone] Scar Lara DO Unavailable [phone] Encounter Details Date Type Department Care Team (Late st Contact Info) Description 06/26/2024 [facility] [address] [facility] [address] [place] [address] Scar Lara DO [address] [facility] [address] [place] [address] Social History Tobacco Use Types Packs/Day Years [...] on file documented as of this encounter Visit Diagnoses Not on filedocumented in this encounter Care Teams Data Examination Clerk Relationship Specialty Start Date End Date Tj Azul PA [address] [place] [address] PCP - [facility] 12/25/22 Scar Lara DO [address] [facility] [address] [place] [address] PCP - General Family Medicine 02/01/23 Scar Lara DO [address] [address] PCP - [facility] 09/26/24 documented as of this encounter
--- OUTSIDE RECORDS SUMMARY | 2025-06-20 11:13 | XMS_ITS | Encounter Summary ---
Author Organization [facility] Address [address] [place] [address] Care Team Providers Care Cyber Security Administrator Name Role Phone Tj Azul Unavailable Scar Lara DO Primary Care Provider [phone] Scar Lara DO Unavailable [phone] Encounter Details Date Type Department Care Team (Late st Contact Info) Description 06/20/2024 Abstract [facility] [address] [facility] [address] [place] [address] Scar Lara DO [address] [facility] [address] [place] [address] Social History Tobacco Use Types Packs/Day Years [...] on filedocumented in this encounter Care Teams Cyber Security Administrator Relationship Specialty Start Date End Date Tj Azul PA [address] [place] [address] PCP - [facility] 12/25/22 Scar Lara DO [address] [facility] [address] [place] [address] PCP - General Family Medicine 02/01/23 Scar Lara DO [address] [address] PCP - [facility] 09/26/24 documented as of this encounter
[2025-06-20 11:14] LABS: Hematocrit 42.6 % (42.0-54.0); Hemoglobin 14.9 g/dL (14.0-18.0); Immature Granulocytes Abs Auto 0.01 10^3/uL (0.00-0.03); Immature Granulocytes Pct Auto 0.2 % (0.0-0.5); Lymphocytes Absolute Auto 3.0 10^3/uL (1.2-3.8); Mean Corpuscular HGB Conc 35.0 g/dL (29.9-35.2); Mean Corpuscular Hemoglobin 30.3 pg (25.9-34.0); Mean Corpuscular Volume 86.6 fL (80.0-94.0); Platelet Count 195 10^3/uL (150-450); Red Blood Count 4.92 10^6/uL (4.70-6.10); White Blood Count 6.7 10^3/uL (4.0-11.0)
--- OUTSIDE RECORDS SUMMARY | 2025-06-20 11:14 | XMS_ITS | Encounter Summary ---
Author Organization [facility] Address [address] [place] [address] Care Team Providers Care Wastewater Supervisor Name Role Phone Tj Azul Unavailable Scar Lara DO Primary Care Provider [phone] Scar Lara DO Unavailable [phone] Encounter Details Date Type Department Care Team (Late st Contact Info) Description 01/23/2024 Abstract [facility] [address] [facility] [address] [place] [address] Scar Lara DO [address] [facility] [address] [place] [address] Social History Tobacco Use Types Packs/Day Years [...] Date Recorded Patient Health Questionnaire-2 Score 0 12/12/2023 Sex and Gender Information Value Date Recorded Sex Assigned at Not on file Legal Sex Male 11:33 PM EDT Gender Identity Not on file Sexual Orientation Not on file documented as of this encounter Plan of Treatment Not on file documented as of this encounter Visit Diagnoses Not on filedocumented in this encounter Care Teams Wastewater Supervisor Relationship Specialty Start Date End Date Tj Azul PA [address] [place] [address] PCP - [facility] 12/25/22 Scar Lara DO [address] [facility] [address] [place] [address] PCP - General Family Medicine 02/01/23 Scar Lara DO [address] [address] PCP - [facility] 09/26/24 documented as of this encounter
--- OUTSIDE RECORDS SUMMARY | 2025-06-20 11:14 | XMS_ITS | Encounter Summary ---
Author Organization [facility] Address [address] [place] [address] Care Team Providers Care Ore Crusher Name Role Phone Tj Azul Unavailable Scar Lara DO Primary Care Provider [phone] Scar Lara DO Unavailable [phone] Encounter Details Date Type Department Care Team (Late st Contact Info) Description 01/23/2024 Abstract [facility] [address] [facility] [address] [place] [address] Scar Lara DO [address] [facility] [address] [place] [address] Social History Tobacco Use Types Packs/Day Years [...] on filedocumented in this encounter Care Teams Ore Crusher Relationship Specialty Start Date End Date Tj Azul PA [address] [place] [address] PCP - [facility] 12/25/22 Scar Lara DO [address] [facility] [address] [place] [address] PCP - General Family Medicine 02/01/23 Scar Lara DO [address] [address] PCP - [facility] 09/26/24 documented as of this encounter
--- OUTSIDE RECORDS SUMMARY | 2025-06-20 11:14 | XMS_ITS | Encounter Summary ---
Author Organization [facility] Address [address] [place] [address] Care Team Providers Care Cloth Tester Name Role Phone Tj Azul Unavailable Scar Lara DO Primary Care Provider [phone] Scar Lara DO Unavailable [phone] Encounter Details Date Type Department Care Team (Late st Contact Info) Description 02/04/2024 Clinisync Result Encounter [facility] External Department Unsolicited [...] Procedure Name Priority Date/Time Associated Diagnosis Comments MR ANKLE LT WO CON 02/04/2024 10 :12 AM EDT documented in this encounter Results * MR ANKLE LT WO CON (02/04/2024 10:12 AM EDT) Anatomical Region Laterality Modality Other 02/04/2024 10:1 2 AM EDT Narrative 02/04/2024 10:15 [place] [address] Magnetic Resonance Report Signed Patient: CHIDI YU MR#: [id number] : 1975 Acct:[id number] Age/Sex: 48 / M ADM Date: 02/03/24 Loc: MRI Attending Dr: Stfeano Bautista Ordering Physician: Stefano Bautista Date of Service: 02/03/24 Procedure(s): ankle LT wo con Accession Number(s): [id number] cc: Bridget LARA ; Stefano Bautista [place] [address] Patient Name: CHIDI YU MRN: [id number] date: 1975 Sex: M Assigned Patient Location: MRI Current Patient Location: Accession/Order Number: [id number] Exam Date: 02/03/2024 06:57 Report Date: 02/04/2024 10:12 At the request of: STEFANO BAUTISTA Procedure: MR ankle LT wo con EXAM: MR ankle LT wo con HISTORY: Left Achilles Rupture COMPARISON: 01/21/2024 radiograph TECHNIQUE: MRI images obtained with multiple sequences. MRI of the left ankle without contrast. Sequences obtained by standard department protocol. FINDINGS: Achilles tendon is intact. Susceptibility artifact adjacent to the Achilles tendon No ankle joint effusion. Plantar fascia is intact. Borderline thickening of the central plantar fascial fibers, suggesting potential chronic plantar fasciitis. Extensor and flexor tendons are intact. Partial-thickness tearing/tendinosis of the peroneus brevis Peroneus longus is intact. Anterior and posterior syndesmotic ligaments are intact. Anterior talofibular, posterior talofibular and calcaneofibular ligaments are intact. No significant degeneration of the hindfoot or midfoot. MR/MR ankle LT wo con IMPRESSION: 1. Achilles tendon is intact. No Achilles tendon tear. 2. There is a focus of susceptibility artifact adjacent to the Achilles tendon fibers, may represent a metallic focus. 3. No acute ligamentous abnormality. 4. Partial-thickness tearing/tendinosis of the peroneus brevis 5. No significant joint degeneration. Electronically authenticated by: IGGI PALACIOS Date: 02/04/2024 10:12 Dictated By: Gigi Palacios M.D. Signed By: 02/04/24 1015 DD/ 1012 TD/TT: Home And School Visitor: Procedure Note Radiology, Radiologist, MD - 02/04/2024 [place] [address] Magnetic Resonance Report Signed Patient: CHIDI YUMR#: [id number] : 1975Acct:[id number] Age/Sex: 48 / MADM Date: 02/03/24 Loc: MRI Attending Dr: Stefano Bautista Ordering Physician: Stefano Bautista Date of Service: 02/03/24 Procedure(s): MR ankle LT wo con Accession Number(s): [id number] cc: Bridget LARA ; Stefano Bautista The [place] [id number] Patient Name: CHIDI YU MRN: [id number] date: 1975 Sex: M Assigned Patient Location: MRI Current Patient Location: Accession/Order Number: [id number] Exam Date: 02/03/2024 06:57 Report Date: 02/04/2024 10:12 At the request of: STEFANO BAUTISTA Procedure: MR ankle LT wo con EXAM: MR ankle LT wo con HISTORY: Left Achilles Rupture COMPARISON: 01/21/2024 radiograph TECHNIQUE: MRI images obtained with multiple sequences. MRI of the leftankle without contrast. Sequences obtained by standard department protocol. FINDINGS: Achilles tendon is intact. Susceptibility artifact adjacent to theAchilles tendon No ankle joint effusion. Plantar fascia is intact. Borderline thickening of the central plantarfascial fibers, suggesting potential chronic plantar fasciitis. Extensor and flexor tendons are intact. Partial-thickness tearing/tendinosis of the peroneus brevis Peroneus longus is intact. Anterior and posterior syndesmotic ligaments are intact. Anteriortalofibular, posterior talofibular and calcaneofibular ligaments are intact. No significant degeneration of the hindfoot or midfoot. MR/MR ankle LT wo con IMPRESSION: 1. Achilles tendon is intact. No Achilles tendon tear. 2. There is a focus of susceptibility artifact adjacent to the Achillestendon fibers, may represent a metallic focus. 3. No acute ligamentous abnormality. 4. Partial-thickness tearing/tendinosis of the peroneus brevis 5. No significant joint degeneration. Electronically authenticated by: GIGI PALACIOS Date: 02/04/2024 10:12 Dictated By: Gigi Palacios M.D. Signed By:02/04/24 1015 DD/ 1012 TD/TT: Home And School Visitor: us Generic External Data Provider [facility] Final Result documented in this encounter Visit Diagnoses Not on filedocumented in this encounter Care Teams Cloth Tester Relationship Specialty Start Date End Date Tj Azul PA [address] [place] [address] PCP - [facility] 12/25/22 Scar Lara DO [address] [place] [address] PCP - General Family Medicine 02/01/23 Scar Lara DO [address] [place] [address] PCP - [facility] 09/26/24 documented as of this encounter
--- OUTSIDE RECORDS SUMMARY | 2025-06-20 11:14 | XMS_ITS | Patient Health Record ---
Author Organization [facility] [place] Address [address] [place] [address] Care Team Providers Care Marketing Education Teacher Name Role Phone Scar Lara DO Primary Care Provider Unavaila Jus Swanson Unavailable [phone] Chinyere Garner Unavailable [phone] Allergies No Known Allergies Results Component Value Reference Range Notes XR foot LT min 3V (Not yet r eviewed by provider) Interpretation: Performing Lab: Notes/Report: Source Facility: [place] [address] XRay Report Signed Patient: CHIDI YU MR#: [id number] : 1975 Acct:[id number] Age/Sex: 48 / M ADM Date: 06/18/24 Loc: SURGOUT Attending Dr: Jus Zuluaga D.P.M. Ordering Physician: Jus Zuluaga D.P.M. Date of Service: 06/18/24 Procedure(s): XR foot LT min 3V Accession Number(s): [id number] cc: Jus Zuluaga D.P.M.; Bridget LARA [place] [address] Patient Name: CHIDI YU MRN: [id number] date: 1975 Sex: M Assigned Patient Location: SURGOUT Current Patient Location: Accession/Order Number: [id number] Exam Date: 06/18/2024 10:50 Report Date: 06/20/2024 [...] from Achilles tendon repair/attachment. Electronically authenticated by: DINO PAULINO Date: 06/20/2024 08:20 Dictated By: Dino Paulino M.D. Signed By: 06/20/24822 DD/ 9 TD/TT: Administrative Law Judge: Reason For Referral Reason Left Achilles tear Equinus contracture left S/P Achilles repair 06/18/24 Diagnosis 1 Strain of left Achil les tendon, initial encounter (S86.012A) Referral Organization [facility] ([facility]) Referring Provider First Name Jus Referring Provider Last Name [facility] Referring Provider Speciality Podiatry Referred Provider Specialty Physical The rapist Referral Priority Routine Reason Referral to physical therapy [facility] Diagnosis 1 Strain of left Achil les tendon, initial encounter (S86.012A) Referral Organization [facility] ([facility]) Referring Provider First Name Jus Referring Provider Last Name [facility] Referring Provider Speciality Podiatry Referred Provider Specialty Physical The rapist Referral Priority Routine Medications Medication SIG (Take, Route, Fr equency, Duration) Notes Start Date End Date Status metFORMIN HCl ER 500 MG Oral; Duration: 30 Days Active tiZANidine HCl 2 MG 1 tablet Orally thre e times daily as needed for muscle spasms; Duration: 10 days 07/02/2024 Active Meloxicam 15 MG 1 tablet Orally Once a day; Duration: 30 days 04/18/2024 Active Social History Tobacco Use: Social History Observation Description Date Details (start date - stop date) Current Smoker NA - NA Tobacco Control (Standard) Question Answer Notes Tobacco use: Current every day smoker Problems Problem Type SNOMED Code ICD Code Onset Dates Problem Status W/U Status Risk Notes Problem Tobacco user (503218601) Nicotine dependence, cigarettes, uncomplicated (F17.210) Active confirmed Problem Plantar fascial fibromatosis (69547331) Plantar fascial fibromatosis (M72.2) Active confirmed Problem Peroneal tendinitis (59232709) Peroneal tendinitis, left leg (M76.72) Active confirmed Vital Signs Heart Rate 84 /min 11/07/2024 Temperature 96.4 degrees Fahrenheit 10/17/2024 Respiratory Rate 16 /min 07/10/2024 Oximetry 96 % 11/07/2024 Height 75 in 11/07/2024 Weight 300 lbs 11/07/2024 BMI 37.49 kg/m2 11/07/2024 Encounters Encounter Location Date Provider Diagnosis [facility] ([facility]) [address] [place] [address] [place] [address] 10/17/2024 Chinyere Garner Plantar fascial fibromatosis M72.2 ; Achilles tendinitis, left leg M76.62 ; Peroneal tendinitis, left leg M76.72 and Calcaneal spur, left foot M77.32 [facility] ([facility]) [address] [place] [address] [place] [address] 11/07/2024 Peter Edisonander Strain of left Achilles tendon, initial encounter S86.012A and Plantar fascial fibromatosis M72.2 [facility] ([facility]) [address] [place] [address] [place] [address] 06/26/2024 Peter Highlander Strain of left Achilles tendon, initial encounter S86.012A ; Peroneal tendinitis, left leg M76.72 ; Plantar fascial fibromatosis M72.2 and Calcaneal spur, left foot M77.32 [facility]) [address] [place] [address] [place] [address] 07/02/2024 Chinyere Garner Strain of left Achilles tendon, initial encounter S86.012A ; Plantar fascial fibromatosis M72.2 and Peroneal tendinitis, left leg M76.72 [facility]) [address] [place] [address] [place] [address] 07/10/2024 Peter Highlander Strain of left Achilles tendon, initial encounter S86.012A ; Peroneal tendinitis, left leg M76.72 and Plantar fascial fibromatosis M72.2 [facility]) [address] [place] [address] 08/08/2024 Jus Zan Strain of left Achilles tendon, initial encounter S86.012A [facility]) [address] [place] [address] [place] [address] 09/05/2024 Jus Zuluaga Strain of left Achilles tendon, initial encounter S86.012A [facility]) [address] [place] [address] [place] [address] 06/21/2024 Jus Zuluaga [facility]) [address] [place] [address] 06/21/2024 Jus [facility] ([facility]) [address] [place] [address] [place] [address] 06/26/2024 Jus Zuluaga [facility] ([facility]) [address] [place] [address] [place] [address] 08/06/2024 Jus Zuluaga Assessments Encounter Date Diagnosis (ICD Code) Assessment Notes Treatment Notes Treatment Clinical Notes Section Notes 06/26/2024 Strain of left Achilles tendon, initial encounter (ICD-10 - S86.012A) Patient seen for his first postoperative appointment following Achilles repair, excision of calcaneal spur and peroneal tendon repair. His incisions appear to be healing well and there is no evidence of infection or DVT today. He is currently taking 2-3 Percocet a day primarily at nighttime and a refill for Percocet 5/325 was sent electronically to his pharmacy. His bowels have been irregular therefore I recommend that he take Colace when pain medicine is needed. He does have MiraLAX at home and also should take as needed.After verbal consent a dry sterile dressing was applied followed by a well-padded short leg cast which was applied in slight plantarflexion and allowed to dry in this position. Patient should remain nonweightbearing. Follow-up in 2 weeks call sooner if any problems arise 06/26/2024 Peroneal tendinitis, left leg (ICD-10 - M76.72) 07/10/2024 Strain of left Achilles tendon, initial encounter (ICD-10 - S86.012A) Patient is 3 weeks status post peroneal tendon and Achilles tendon repair as well as EPF. His sutures were discontinued. No evidence of infection or DVT today. Patient may begin weightbearing as tolerated in cam boot with wedges. He may remove 1 wedge every 7 to 10 days. He will follow-up in 4 weeks. No formal physical therapy yet but patient may begin light stretching and range of motion exercises. 07/10/2024 Peroneal tendinitis, left leg (ICD-10 - M76.72) 08/08/2024 Strain of left Achilles tendon, initial encounter (ICD-10 - S86.012A) Patient is status post insertional Achilles repair is doing well overall but encouraged him to remove 1 wedge today then another wedge in the next 5 to 7 days. He may discontinue the crutches as pain allows. Begin active and passive strengthening and range of motion as well as formal physical therapy. Prescription for therapy was provided today annual follow-up with me in 4 weeks call sooner if needed 09/05/2024 Strain of left Achilles tendon, initial encounter (ICD-10 - S86.012A) Patient follows up status post insertional Achilles repair. He is back to work with some daily limitations but overall happy with his progress. I recommend he continue physical therapy. Recommended a heel cup and he may continue to increase his activities as he tolerates and follow-up in 6 weeks no new x-rays needed 10/17/2024 Plantar fascial fibromatosis (ICD-10 - M72.2) 10/17/2024 Achilles tendinitis, left leg (ICD-10 - M76.62) The patient is 4 months status post calcaneal spur excision with repair of the Achilles and peroneal tendons, DOS: 06/18/2024.He is progressing as expected. No evidence of infection or DVT on examination.He has transition to normal shoes. He has returned to work but reports he can only last a couple of hours before the swelling and pain forces him to stop working. 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 He was offered reassurance that this will improve as he continues to regain calf muscle strength. I encouraged him to continue physical therapy. He should also consider changing his shoe inserts frequently to offer more shock absorption.I advised that I expect him to make a full recovery 12 months out from surgery, and he will continually note improvement until that time.Follow-up in 2 months, sooner if any issues arise. No x-rays necessary at that time. 07/02/2024 Strain of left Achilles tendon, initial encounter (ICD-10 - S86.012A) The patient is 2 weeks s/p left Achilles repair, excision of calcaneal spur and peroneal tendon repair, DOS: 06/18/24. He presents today complaingin that his cast feels too tight. No evidence of compartment syndrome or DVT on examination after cast removed. No SOI. He was placed into a well padded short leg posterior splint with the ankle in slight plantarflexion. He states this was much more comfortable. He should remain NWB. Elevation and ice behind the knee encouraged. Tizanidine added to his med regimen. Followup next week as previously scheduled, sooner if any issues arise. 07/02/2024 Plantar fascial fibromatosis (ICD-10 - M72.2) 11/07/2024 Strain of left Achilles tendon, initial encounter (ICD-10 - S86.012A) Patient is 4 months status post insertional Achilles repair and EPF. His primary issue is swelling and he is attempted Tubigrip which helped somewhat but relates that those have worn out. A prescription for Jobst compression stockings 15-20mmHg was provided as well as an order for physical therapy with emphasis on strengthening, range of motion and massage/swelling management. He may return to normal shoes and activity as pain and swelling allow. He will follow-up in 2 months but is to call with any issues no new x-rays needed at follow-up 11/07/2024 Plantar fascial fibromatosis (ICD-10 - M72.2) 07/02/2024 Peroneal tendinitis, left leg (ICD-10 - M76.72) 10/17/2024 Peroneal tendinitis, left leg (ICD-10 - M76.72) 07/10/2024 Plantar fascial fibromatosis (ICD-10 - M72.2) 06/26/2024 Plantar fascial fibromatosis (ICD-10 - M72.2) 06/26/2024 Calcaneal spur, left foot (ICD-10 - M77.32) 10/17/2024 Calcaneal spur, left foot (ICD-10 - M77.32) Plan Of Treatment Pending Test Test Name Order Date XR foot LT min 3V 06/20/2024 Insurance Providers Payer Name Payer Address Payer Phone Subscriber Number Group Number Insured Name Patient Relationship to Insured Coverage Start Date Coverage End Date [employer] [place] [employer] [address] [place] [address] [id number] Chidi Madsen i Self - patient is the insured Medical (General) History Medical History History ICD Code left ankle pain pre diabetes Surgical History Surgery Date(Month/Year) hip replacement 2001 bicept repair 2019 left Achilles tendon repair with excision of calcaneal spur, peroneal tendon repair, endoscopic plantar fasciotomy and stress exam under fluoroscopy 06/18/24 Hospitalization History Reason Date(Month/Year) see above
--- OUTSIDE RECORDS SUMMARY | 2025-06-20 11:14 | XMS_ITS | Clinical Summary ---
Author Organization [facility] Address [address] [place] [address] Care Team Providers Care Claims Analyst Name Role Phone Kd Hudson DO Primary Care Provider [phone] Allergies Active Allergy Reactions Criticality Noted Date Comments Amoxicillin Unknown 08/15/2018 Was told as a not to take Medications ibuprofen (MOTRIN) 800 mg tabletIndicatio ns:Dental infection,Open fracture of tooth, initial encounter Take 1 tablet by mouth every 8 hours as needed. 30 tablet 08/15/2018 Active docusate sodium (COLACE) 100 mg capsuleIndicati ons:Rupture of right distal biceps tendon, initial encounter Take 1 capsule by mouth twice daily. 10 capsule 08/07/2020 Active ondansetron (ZOFRAN) 4 mg tabletIndicatio ns:Rupture of right distal biceps tendon, initial encounter Take one tablet by mouth every 8 hours as needed for nausea/vomit ing. 10 tablet 08/07/2020 Active Active Problems Problem Noted Date Diagnosed Date Rupture of right distal biceps tendon 09/12/2020 Status post tendon repair 09/12/2020 Social History Tobacco Use Types Packs/Day Years Used Date Smoking Tobacco: Every Day Smokeless Tobacco: Never Comments:1/2 ppd x 20 years Area Deprivation Index Answer Date Iban rded National Score (1-100), lower number is lower ri sk 86 02/17/2024 State Score (1-10), lower number is lower risk 8 02/17/2024 Data from: https://www.neighborhoodatlas.medicine.[facility].edu/. Last address used for calculation [address] [place] [address] 02/17/2024 Sex and Gender Information Value Date Recorded Sex Assigned at Not on file Legal Sex Male 9:26 PM EDT Gender Identity Not on file Sexual Orientation Not on file Last Filed Vital Signs Vital Sign Reading Time Taken Comments Blood Pressure 127/85 08/07/2020 1:35 PM EST Pulse 73 08/07/2020 1:35 PM EST Temperature 36 C (96.8 F) 08/07/2020 12:45 PM EST Respiratory Rate 18 04/30/2021 10:02 AM EDT Oxygen Saturation 94% 08/07/2020 1:35 PM EST Inhaled Oxygen Concentration - - Weight 113.4 kg (250 lb) 08/13/2022 11:23 AM EST Height 190.5 cm (6' 3 ) 08/13/2022 11:23 AM EST Body Mass Index 31.25 08/13/2022 11:23 AM EST Plan of Treatment Health Maintenance Due Date Last Done Comments Anxiety Screening 1995 Depression Screening 1995 HIV Screening 1995 Hepatitis C Screening 1995 DTaP,Tdap,Td Vaccine (1 - Tdap) 1996 Hepatitis B Vaccine (1 of 3 - 19+ 3-dose series) [address] Colonography 2022 Cologuard (FIT-DNA) 2022 Colonoscopy 2022 Colorectal Cancer Screening 2022 Fecal Occult Blood 2022 Sigmoidoscopy 2022 Diabetes Screening 01/07/2024 01/06/2021, 10/21/2019 Influenza Vaccine (#1) 2025 Medical Devices Implanted Type Area General Laborer Device Identifier Shelf Expiration Date Model / Serial / Lot [id number] Implant - [id number] Implanted:Qty: 1 on 08/07/2020 by Sujit Skinner MD at [facility] Implant Right: Arm [employer] 05/26/2022 [id number] / / [id number] Insurance [facility] MEDICAID Care Teams Claims Analyst Relationship Specialty Start Date End Date Kd Hudson DO [address] [facility] [place] [address] PCP - General Family Medicine 06/30/20
--- OUTSIDE RECORDS SUMMARY | 2025-06-20 11:14 | XMS_ITS | Encounter Summary ---
Author Organization [facility] Address [address] [facility] [place] [address] Care Team Providers Care Chip Frier Name Role Phone Tj Azul Unavailable Scar Lara DO Primary Care Provider Scar Lara DO Unavailable [phone] Encounter Details Date Type Department Care Team (Late st Contact Info) Description 08/30/2023 External Result Encounter [facility] External Department Unsolicited Roberto Yang PA [address] [place] [address] Social History Tobacco Use Types Packs/Day Years [...] Date Recorded Patient Health Questionnaire-2 Score 0 08/09/2023 Sex and Gender Information Value Date Recorded Sex Assigned at Not on file Legal Sex Male 11:33 PM EDT Gender Identity Not on file Sexual Orientation Not on file documented as of this encounter Plan of Treatment Not on file documented as of this encounter Procedures Procedure Name Priority Date/Time Associated Diagnosis Comments NM BONE AND OR JOINT 3 PHASE 64093 08/30/2023 12:58 PM EST documented in this encounter Results * NM BONE AND OR JOINT 3 PHASE 29164 (08/30/2023 12:58 PM EST) Anatomical Region Laterality Modality Radiographic Leila ging 08/30/2023 12:5 8 PM EST Impressions 08/31/2023 9:40 AM EST PROBABLE DEGENERATIVE UPTAKE AT THE LOWER IMAGED LUMBAR SPINE. NO BONE SCAN ABNORMALITIES INVOLVING THE HIPS. Impression dictated by: Susana Rogel M.D.08/30/2023 1:29 PM Dictation Location: [place] [address] Transcribed By: [facility] 08/30/23 1329 Dictated By: Susana Rogel MD 08/30/23 1258 Signed By: <Electronically signed by MD Susana Rogel in OV> 08/30/23 1329 Narrative 08/31/2023 9:40 AM EST [facility] [place] [address] Nuclear Medicine Report Signed Patient: Gregory Scruggs MR#: [id number] : 1975 Acct:[id number] Age/Sex: 47 / M ADM Date: 08/30/23 Loc: [place] Room: Type: [facility] Attending Dr: Roberto Yang PA-C Copies to: MD Roberto Peralta PA-C Ordering Provider: Roberto Yang PA-C Date of Service: 08/30/23 NM/NM bone 3 phase: M25.551, M25.552 THREE-PHASE BONE SCAN OF THE HIPS CLINICAL DATA: Low back and hip pain. Previous right femoral ankita. COMPARISON: CT pelvis 12/24/2021 Following the intravenous administration of 22.1 mCi of technetium 99m labeled MDP, flow images of the pelvis were obtained followed by immediate static blood pool imaging. No hyperemia is seen. Three hours following injection, views of the pelvis were obtained in the AP and lateral projection. There is radioactive urine which partially obscures the pubic symphysis and lower sacrum. There is symmetric uptake in both SI joints. There is mild asymmetric increased uptake at the mid to lower lumbar spine on the left and at the lumbosacral junction on the right. This is probably degenerative. There is no focal increased uptake or asymmetry involving the hips or proximal imaged femora. [facility] bone 3 phase Procedure Note Radiology, Radiologist, - 08/31/2023 [facility] [address] [place] [address] [place] [address] Nuclear Medicine Report Signed Patient: Gregory Scruggs [facility]#: [id number] : 1975Acct:[id number] Age/Sex: 47 / MADM Date: 08/30/23 Loc: [place] Room:Type: [facility] Attending Dr: Roberto Yang PA-C Copies to: MD Roberto Peralta PA-C Ordering Provider: Roberto Yang PA-C Date of Service: 08/30/23 [facility] bone 3 phase: M25.551, M25.552 THREE-PHASE BONE SCAN OF THE HIPS CLINICAL DATA: Low back and hip pain. Previous right femoral ankita. COMPARISON: CT pelvis 12/24/2021 Following the intravenous administration of 22.1 mCi of technetium 99mlabeled MDP, flow images of the pelvis were obtained followed by immediate static blood pool imaging.No hyperemia is seen. Three hours following injection, views of the pelvis were obtained in theAP and lateral projection. There is radioactive urine which partially obscures the pubic symphysisand lower sacrum. There is symmetric uptake in both SI joints. There is mild asymmetric increaseduptake at the mid to lower lumbar spine on the left and at the lumbosacral junction on the right.This is probably degenerative. There is no focal increased uptake or asymmetry involvingthe hips or proximal imaged femora. RI/RI bone 3 phase IMPRESSION: PROBABLE DEGENERATIVE UPTAKE AT THE LOWER IMAGED LUMBAR SPINE. NO BONE SCAN ABNORMALITIES INVOLVING THE HIPS. Impression dictated by: Susana Rogel M.D.08/30/2023 1:29 PM Dictation Location: [place] [address] Transcribed By: BOBBI 08/30/23 1329 Dictated By: Susana Rogel MD 08/30/23 1258 Signed By: <Electronically signed by MD Susana Rogel in OV> 08/30/23 1329 us Roberto MENEZES IMG XR PROCEDURES Final Resul t documented in this encounter Visit Diagnoses Not on filedocumented in this encounter Care Teams Chip Frier Relationship Specialty Start Date End Date Tj Azul PA [address] [place] [address] PCP - [facility] 12/25/22 Scar Lara DO [address] [facility] [address] [place] [address] PCP - General Family Medicine 02/01/23 Scar Lara DO [address] [facility] [address] [place] [address] PCP - [facility] 09/26/24 documented as of this encounter
[2025-06-20 11:15] LABS: Glucose Urine UA NEGATIVE (NEGATIVE)
--- OUTSIDE RECORDS SUMMARY | 2025-06-20 11:15 | XMS_ITS | Clinical Summary ---
Author Organization [facility] Address [address] [place] [address] Care Team Providers Care Special Agent In Charge Name Role Phone Scar Lara DO Primary Care Provider [phone] Scar Lara DO Unavailable [phone] Allergies Active Allergy Reactions Criticality Noted Date Comments Amoxicillin Unknown 08/15/2018 Was told as a infant not to take Medications docusate sodium (Colace) 100 MG capsule Take 200 mg by mouth Daily 06/26/2024 Active oxyCODONE-aceta minophen (Percocet) 5-325 MG tablet Take 1 tablet by mouth every 4 (four) hours if needed 06/26/2024 Active meloxicam (Mobic) 15 MG tablet 1 (one) time each day at the same time 04/18/2024 Active metFORMIN XR (Glucophage-XR) 500 MG 24 hr tabletIndicatio ns:Prediabetes Take 1 tablet (500 mg) by mouth in the evening. Take with meals Do not crush, chew, or split. 30 tablet 5 11/08/2024 Active lisinopril 20 MG tabletIndicatio ns:Elevated blood pressure reading Take 1 tablet (20 mg) by mouth Daily 30 tablet 11 11/08/2024 11/08/19 26 Active albuterol HFA 90 mcg/act inhalerIndicati ons:Bronchitis Inhale 2 puffs every 4 (four) hours if needed for wheezing 18 g 3 11/08/2024 11/08/19 26 Active Active Problems Problem Noted Date Diagnosed Date Elevated blood pressure reading 11/08/2024 Prediabetes 05/09/2024 Hyperlipidemia, unspecified 05/09/2024 Morbid (severe) obesity due to excess calories 0 05/09/2024 Elevated liver enzymes 05/09/2024 Major depressive disorder, recurrent 05/01/2024 Nicotine dependence, cigarettes, uncomplicated 0 05/01/2024 Impotence of organic origin 05/05/2023 Lumbar degenerative disc disease 05/05/2023 Primary osteoarthritis, left shoulder 05/05/2023 Primary osteoarthritis, right shoulder Alcohol use disorder, severe, dependence 021 MDD (major depressive disord er), recurrent severe, without psychosis 01/08/2021 Rupture of right distal biceps tendon 09/12/2020 Status post tendon repair 09/12/2020 Family History Medical History Relation Name Comments Diabetes insipidus Mother Relation Name Status Comments Father Mother Alive Son Alive Social History Tobacco Use Types Packs/Day Years Used Date Smoking Tobacco: Former Cigarettes Smokeless Tobacco: Never Tobacco Cessation:Counseling Given: Yes Alcohol Use Standard Drinks/Week Comments Yes 0 [...] Sign Reading Time Taken Comments Blood Pressure 126/94 11/08/2024 2:15 PM EST Pulse 82 11/08/2024 2:15 PM EST Temperature 36.8 C (98.2 F) 11/08/2024 2:15 PM EST Respiratory Rate - - Oxygen Saturation 98% 11/08/2024 2:15 PM EST Inhaled Oxygen Concentration - - Weight 136 kg (300 lb) 11/08/2024 2:15 PM EST Height 190.5 cm (6' 3 ) 11/08/2024 2:15 PM EST Body Mass Index 37.5 11/08/2024 2:15 PM EST Plan of Treatment Health Maintenance Due Date Last Done Comments CT Colonography 1977 Colonoscopy 1977 Colorectal Cancer Screening 1977 FIT-DNA 1977 FIT 1977 FOBT 1977 Sigmoidoscopy 1977 Influenza Vaccine (#1) 2025 Insurance [employer] Care Teams Special Agent In Charge Relationship Specialty Start Date End Date Scar Lara DO [address] [place] [address] PCP - General Family Medicine 02/01/23 Scar Lara DO [address] [place] [address] PCP - [facility] 09/26/24
--- OUTSIDE RECORDS SUMMARY | 2025-06-20 11:15 | XMS_ITS | Patient Health Record ---
[facility] Address [address] [place] [id number] Care Team Providers Care Supervisor Wet Pour Name Role Phone Kd Hudson Primary Care Provider [phone] Allergies Allergen (clinical drug ingredient) Drug/Non Drug Allergy documented on EMR Reaction Allergy Type Onset Date Status amoxicillin amoxicillin (uncoded) unknown reaction as a child Allergy Active Reason For Referral No Information Medications Medication SIG (Take, Route, Frequency, Duration) Notes Start Date End Date Status Ibuprofen 800 MG Tablet 1 tablet with fo od or milk as needed Orally Three times a day; Duration: 10 days 04/13/2021 Active Effexor XR 37.5 MG Capsule Extended Release 24 Hour 1 capsule with food Orally Once a day; Duration: 30 day(s) 01/05/2021 Active Effexor XR 37.5 MG Capsule Extended Release 24 Hour 1 capsule with food Orally Once a day; Duration: 30 day(s) 08/18/2021 Active Sildenafil Citrate 50 MG Tablet TAKE ONE TABLET BY MOUTH DAILY NEEDED; Duration: 30 Active Social History Tobacco Use: Social History Observation Description Date Details (start date - stop date) Current Smoker NA - NA Social History Tobacco Use: Social Info Question Answer Notes Tobacco Use/Smoking Are you a current smoker How many cigarettes a day do you smoke? 6-10 Section Notes: The patient does admit to drinking approximately 12 beers a day. The patient denies illicit drug use. The patient does admit to occasional alcohol use. The patient denies illicit drug use. Problems Problem Type SNOMED Code ICD Code Onset Dates Problem Status W/U Status Risk Notes Problem Tobacco user (070963172) Nicotine dependence, cigarettes, uncomplicated (F17.210) Active confirmed Problem Major depression, single episode (16541632) Major depressive disorder, single episode, unspecified (F32.9) Active confirmed Problem Anxiety disorder (351400585) Anxiety disorder, unspecified (F41.9) Active confirmed Problem Shoulder joint pain (663856214) Pain in left shoulder (M25.512) Active confirmed Problem Erectile dysfunction (disorder) (713921053) Male erectile dysfunction, unspecified (N52.9) Active confirmed Problem Pain of right shoulder region (finding) (9163227394) Pain in right shoulder (M25.511) Active confirmed Plan Of Treatment Pending Test Test Name Order Date TSH 06/26/2020 CBC With Differential/Platelet 0 T4 06/26/2020 Lipid Panel 06/26/2020 Hepatic Function Panel (7) 06/26/2020 Basic Metabolic Panel (8) 06/26/2020 Insurance Providers Payer Name Payer Address Payer Phone Subscriber Number Group Number Insured Name Patient Relationship to Insured Coverage Start Date [facility]age End Date [facility] [address] [place] [phone] [id number] Gregory Madsen i Self - patient is the insured Medical (General) History Medical History History ICD Code erectile dysfunction smoker left rotator cuff tear fracture right femur Surgical History Surgery Date(Month/Year) surgical ankita right femur right biceps surgery
[2025-06-20 11:24] LABS: Anion Gap 9.2; Blood Urea Nitrogen 22.0 mg/dL (7.0-18.0); Calcium 8.4 mg/dL (8.5-10.1); Carbon Dioxide 26.7 mmol/L (21.0-32.0); Chloride 108 mmol/L (98-107); Estimated GFR (African America >60 (>=60 mL/min/1.73m^2); Estimated GFR (Non-African Ame >60 (>=60 mL/min/1.73m^2); Glucose 101 mg/dL (74-106); Potassium 3.9 mmol/L (3.5-5.1); Sodium 140 mmol/L (136-145)
[2025-06-20 11:26] LABS: Cast Seen? NONE SEEN #/LPF (NONE SEEN); Crystals Seen? None Seen #/HPF (None Seen); Urine Culture Indicated NO
--- NOTE | 2025-06-20 12:25 | US_ITS ---
The [address] [address] Patient Name: CHIDI YU MRN: [id number] date: 1975 Sex: M Assigned Patient Location: ER Current Patient Location: Accession/Order Number: [id number] Exam Date: 06/20/2025 12:30 Report Date: 06/20/2025 13:06 At the request of: EUNICE WHEELER MD Procedure: US scrotum doppler EXAMINATION TYPE: US scrotum doppler grayscale, color Doppler, waveform duplex analysis was performed. DATE OF EXAM ORDERED: 06/20/2025 1:02 PM HISTORY: Right testicular pain COMPARISON: NONE TECHNIQUE: Realtime imaging of the scrotum was performed. [place]uesada scale, color Doppler and spectral Doppler imaging of the testicles was performed. FINDINGS: Testicles: Both testicles demonstrate homogeneous echotexture without intratesticular filling defect. Benign-appearing calcifications are present right testicle. Right measurements: 4.4 x 2.9 x 2.7 cm Left measurements: 4.8 x 3.1 2.0 cm Epididymis: The bilateral epididymides demonstrate normal echogenicity without focal lesion. Right measurements: 5 mm in greatest dimension Left measurements: 7 mm in greatest dimension Hydrocele: None. Doppler ultrasound of the testicles: Arterial and venous waveforms are seen within both testicles. No sonographic evidence of testicular ischemia. US/US scrotum doppler IMPRESSION: 1. The testicles are normal in size and echogenicity. No intratesticular lesions. 2. No sonographic evidence of testicular ischemia. Impression dictated by: Travis Benson M.D. 06/20/2025 1:06 PM Dictation Location: [place] [address] Electronically authenticated by: [id number] Y Date: 06/20/2025 13:06
[2025-06-20] MEDS: KETOROLAC TROMETHAMINE 30 MG/ML VIAL IVP (12:26)
[2025-06-20 13:42] VITALS: BP 153/93; PULSE 51; O2SAT 98
== END 2025-06-20 13:43 | disposition home or self-care (01) ==
PROVIDERS: Emergency Provider Emergency Medicine; PCP Family Medicine
DX: R10.31 Right lower quadrant pain (principal); F17.210 Nicotine dependence, cigarettes, uncomplicated
CPT/HCPCS: 36415; 74177; 76870; 80048; 81001; 85025; 93976; 96374; 99285; J1885; Q9967